=== PATIENT | female | born 1985 ===

== ENCOUNTER → 2021-06-03 08:51 | Outpatient (BNVA) | payer OTHER, SELFPAY | PROVIDERS: PCP Internal Medicine; Visit Provider Advanced Practice Midwife | DX: Z30.09 Encounter for other general counseling and advice on contraception (principal); E28.2 Polycystic ovarian syndrome; G43.909 Migraine, unspecified, not intractable, without status migrainosus | CPT/HCPCS: 99212 ==

== ENCOUNTER → 2021-08-03 11:56 | Outpatient (BNVA) | payer OTHER, SELFPAY | PROVIDERS: PCP Internal Medicine; Visit Provider Obstetrics & Gynecology ==

== ENCOUNTER 2021-08-30 09:03 | Outpatient (REF) | payer OTHER, SELFPAY ==
--- NOTE | 2021-08-30 09:13 | ECG_ITS ---
Test Reason : dizziness giddiness Blood Pressure : / mmHG Vent. Rate : 073 BPM Atrial Rate : 073 BPM P-R Int : 144 ms QRS Dur : 086 ms QT Int : 388 ms P-R-T Axes : 011 001 014 degrees QTc Int : 427 ms Normal sinus rhythm Minimal voltage criteria for LVH, may be normal variant ( R in aVL ) Borderline ECG When compared with ECG of 16-AUG-2015 13:51, Vent. rate has decreased BY 36 BPM Nonspecific T wave abnormality no longer evident in Anterior leads Referred By: Darline Cotton Electronically Signed By:MAGI DOZIER MD
[2021-08-30 09:31] LABS: MANUAL DIFF FLAG NO
[2021-08-30 09:57] LABS: Basophils Percent Auto 0.7 % (0-2); Eosinophils Absolute Auto 0.2 X10*3/uL (0.0-0.4); Eosinophils Percent Auto 2.9 % (0-4); Hematocrit 45.8 % (37.0-47.0); Hemoglobin 14.5 g/dl (12.0-16.0); Imm Gran Abs Auto 0.02 X10*3/uL (0.00-0.03); Imm Gran Pct Auto 0.3 % (0.0-0.4); Lymphocytes Absolute Auto 1.8 X10*3/uL (1.2-4.9); Lymphocytes Percent Auto 30.9 % (20-40); Mean Corpuscular HGB Conc 31.7 g/dl (31.0-35.0); Mean Corpuscular Hemoglobin 26.1 pg (27.0-33.0); Mean Corpuscular Volume 82.5 fL (80.0-98.0); Mean Platelet Volume 10.9 fL (9.4-12.3); Monocytes Absolute Auto 0.4 X10*3/uL (0.1-1.2); Monocytes Percent Auto 6.9 % (2-11); Neutrophils Absolute Auto 3.5 x10*3/uL (2.0-8.3); Neutrophils Percent Auto 58.3 % (45-73); Platelet Count 311 X10*3/uL (160-400); Red Blood Count 5.55 X10*6/uL (4.20-5.50); Red Cell Distribution Width 13.7 % (11.0-16.0); White Blood Count 5.9 X10*3/uL (4.8-10.8)
[2021-08-30 10:02] LABS: Prothrombin Time 11.7 SEC (9.9-13.0)
[2021-08-30 10:27] LABS: Alanine Aminotransferase 14 U/L (0-31); Albumin Level 4.2 g/dL (3.5-5.0); Alkaline Phosphatase 73 U/L (39-117); Anion Gap 11 (12-20); Aspartate Amino Transferase 16 U/L (5-31); Bilirubin Total 0.6 mg/dL (0.0-1.0); Blood Urea Nitrogen 11 mg/dL (9-16); Calcium 9.3 mg/dL (8.4-10.2); Carbon Dioxide 27 mmol/L (22-29); Chloride 107 mmol/L (96-108); Estimated Glomerular Filt Rate > 60; Glucose Random 87 mg/dL (60-115); Sodium 141 mmol/L (135-145); Total Protein 7.6 g/dL (6.5-8.0)
[2021-08-30 10:50] LABS: TSH reflex Free T4 2.38 uIU/mL (0.32-4.0); Vitamin D 25-OH Total 13.4 ng/mL (>30)
[2021-08-30 11:17] LABS: Folate 7.2 ng/mL (> or = 4.0); Vitamin B12 471 pg/mL (200-900)
== END 2021-08-30 09:04 | disposition home or self-care (01) ==
LOC: HO.LAB 09:03
PROVIDERS: PCP Internal Medicine; Visit Provider Nurse Practitioner Family
DX: R04.0 Epistaxis (principal); R42 Dizziness and giddiness; R26.89 Other abnormalities of gait and mobility; E03.9 Hypothyroidism, unspecified
CPT/HCPCS: 36415; 80053; 82306; 82607; 82746; 84443; 85025; 85610; 93005

== ENCOUNTER 2021-09-23 09:30 | Outpatient (RCR) | payer OTHER, SELFPAY ==
[2021-09-16 13:04] VITALS: BP 129/86; PULSE 87
--- NOTE | 2021-09-16 13:58 | MHC.PT.EP ---
[facility] [place] [facility] [place] [facility] [place] [facility] [address] [phone] F: [phone] F: [phone] F: [phone] F: [phone] Physical Therapy Plan of Care Date of Evaluation: Date of Surgery: NA Diagnosis: Dizziness and giddiness Assessment: Prema is a 36 year old female who is referred to PT for dizziness and giddiness . Pt reports of having sudden onset of dizziness about a month. She describes her symptoms as room spinning and is present with rolling to the R, looking up and down and sudden head turns, and nausea. On PT examination she presented with intact smooth pursuit, visual tracking, saccades, DVA, negative head thrust and VBI. She demonstrated good static and dynamic balance. She was positive in [place]. Due to these impairments she has difficulty with ADLS like requiring her to bend down or make sudden turn. She would benefit from skilled PT to address the aforementioned impairments and improve tolerance to functional activities. Frequency and Duration: The patient will be seen 2/week for 4 weeks Short Term Goals: Patient to be educated on symptoms and indications to return to therapy when needed min 4 weeks. Pt will be negative for nystagmus or reports of vertigo in all diagnostic positions bilaterally to resolution of BPPV in 4 weeks. Correction Goals: Patient to be able to functionally move in all planes and directions without provocation of dizziness to show return to PLOF in 6 weeks. Treatment Plan: Modalities to reduce pain, spasms and effusion. Manual therapy to restore motion and function. Therapeutic exercise to improve strength and flexibility. Neuromuscular re-education for posture and balance. Therapeutic activities to return to functional activities of daily living. Electronically signed by: Jesusita Dutton PT DPT Please sign and return to therapist. Thank you for your referral.
--- NOTE | 2021-10-21 08:32 | MHC.PT.DC ---
[facility] [place] [facility] [place] [facility] [place] [facility] [address] [place] [address] [facility] [phone] F: [phone] F: [phone] F: [phone] F: [phone] Physical Therapy Discharge Report Diagnosis: Dizziness and giddiness Date of Surgery: NA Date of Evaluation: 09/16/21 Date of Discharge: 10/21/21 Treatments to Date: 2 Cancellations to Date: 0 No Shows to Date: 0 Discharge Status: Achieved Goals Discharge Summary: Prema has had no symptoms of vestibular hypofunction in a month. She has therefore been d/c from therapy. Electronically signed by: Jesusita Dutotn PT DPT Please sign and return to therapist. Thank you for your referral.
== END 2021-10-21 08:32 | disposition home or self-care (01) ==
LOC: HO.PT 09:30
PROVIDERS: Visit Provider Nurse Practitioner Family
DX: R26.89 Other abnormalities of gait and mobility (principal); R42 Dizziness and giddiness
CPT/HCPCS: 95992; 97112; 97161

== ENCOUNTER 2021-12-07 14:39 | Emergency (ER) | payer OTHER, SELFPAY ==
[2021-12-07 15:02] VITALS: BP 154/93; PULSE 114; RESP 17; TEMP 36.3; O2SAT 100; BMI 41.9
--- NOTE | 2021-12-07 15:28 | ED_ITS ---
HPI - Female Genitourinary General Chief complaint: Urogenital-Female <Nava Blanco NP - Last Filed: 12/07/21 17:03> Stated complaint: low back pain <Nava Blanco NP - Last Filed: 12/07/21 17:03> Time Seen by Provider: 12/07/21 15:14 <Nava Blanco NP - Last Filed: 12/07/21 17:03> Source: patient <Nava Blanco NP - Last Filed: 12/07/21 17:03> Mode of arrival: ambulatory <Nava Blanco NP - Last Filed: 12/07/21 17:03> Limitations: no limitations <Nava Blanco NP - Last Filed: 12/07/21 17:03> History of Present Illness HPI Narrative: 36 yo female with history of hypothyroidism, vertigo, migraines, GERD here with complaints of back pain with radiation to the pelvis for the last 2 days. Pain is described as cramping. Patient denies any injury or trauma. No history of chronic back pain. Patient also reports she noticed some clear vaginal discharge yesterday. She has had some urinary frequency and urgency. She denies any diarrhea, constipation, nausea, vomiting, fevers, chills. Patient tells me she is sexually active with 1 male partner. She does use condoms normally however this past weekend while having sexual intercourse the condom broke. Patient tells me she does have a history of general herpes but denies any g enital lesions. She does have some discomfort in her external genital area. <Nava Blanco NP - Last Filed: 12/07/21 17:03> Related Data Home medications: Previous Rx's Medication Instructions Recorded albuterol sulfate 90 mcg/actuation 1 inh INHALATION Q4-6H PRN 30 Days 02/19/21 breath activated powder inhaler #1 ea (ProAir RespiClick) pantoprazole 40 mg tablet,delayed 40 mg PO DAILY 90 Days #90 tab 02/19/21 release cholecalciferol (vitamin D3) 50 50 mcg PO DAILY #90 tab 08/30/21 mcg (2,000 unit) tablet levothyroxine 112 mcg tablet 112 mcg PO DAILY 90 Days #90 tab 11/25/21 loratadine 10 mg tablet (Allergy 10 mg PO DAILY 90 Days #90 tab 11/26/21 Relief (loratadine)) benzonatate 100 mg capsule 100 mg PO BID PRN 5 Days #10 cap 12/06/21 cyclobenzaprine 10 mg tablet 10 mg PO TID PRN #14 tab 12/07/21 naproxen 500 mg tablet 500 mg PO BID PRN #30 tab 12/07/21 metronidazole 500 mg tablet 500 mg PO BID 7 Days #14 tab 12/09/21 <Nava Blanco NP - Last Filed: 12/07/21 17:03> Allergies/Adverse reactions: Allergies Allergy/AdvReac Type Severity Reaction Status Date / Time No Known Allergies Allergy Verified 12/06/21 13:56 <Nava Blanco NP - Last Filed: 12/07/21 17:03> Review of Systems Review of Systems: Yes all other systems are reviewed and are negative <Nava Blanco NP - Last Filed: 12/07/21 17:03> Constitutional: Constitutional: Reports no additional constitutional complaints, Denies body ache(s), Denies chills, Denies fever(s), Denies headache(s) and Denies weakness <ROBERTA Mcconnell Last Filed: 12/07/21 17:03> Eyes: Eyes: Reports no additional eye complaints and Denies change in vision <Nava Blanco NP - Last Filed: 12/07/21 17:03> ENT: Reports system reviewed and no additional complaints, except as documented, Denies dizziness, Denies headache(s), Denies nasal congestion, Denies nasal discharge and Denies neck pain <Nava Blanco NP - Last Filed: 12/07/21 17:03> Cardiovascular: Cardiovascular: Reports no additional cardiovascular complaints, Denies chest pain, Denies leg edema and Denies dyspnea <Nava Blanco NP - Last Filed: 12/07/21 17:03> Respiratory: Respiratory: Reports no additional respiratory complaints, Denies cough and Denies dyspnea <Nava Blanco NP - Last Filed: 12/07/21 17:03> Gastrointestinal: Gastrointestinal: Reports no additional gastrointestinal complaints, Denies abdominal pain, Denies diarrhea, Denies nausea and Denies vomiting <Nava Blanco NP - Last Filed: 12/07/21 17:03> Genitourinary: Genitourinary: Reports no additional female genitourinary complaints, Denies difficulty voiding, Denies genital pruritis, Denies genital lesions, Denies dysuria, Reports pelvic pain, Denies flank pain, Denies urinary incontinence, Denies urinary hesitancy, Reports urinary urgency and Reports vaginal discharge <Nava Blanco NP - Last Filed: 12/07/21 17:03> Comments: +urinary frequency <Nava Blanco NP - Last Filed: 12/07/21 17:03> Musculoskeletal: Musculoskeletal: Reports no additional musculoskeletal complaints, Reports back pain, Denies arthralgias, Denies joint swelling, Denies neck pain, Denies numbness and Denies tingling <Nava Blanco NP - Last Filed: 12/07/21 17:03> Integumentary/Breasts: Skin/Breast: Reports system reviewed and no additional complaints, except as docu and Denies rash <Nava Blanco NP - Last Filed: 12/07/21 17:03> Neurologic: Reports system reviewed and no additional complaints, except as documented, Denies Abnormal speech present, Denies dizziness, Denies headache(s), Denies numbness, Denies tingling and Denies weakness <Nava Blanco NP - Last Filed: 12/07/21 17:03> PMF Past Medical History Attestation statement: The following information was validated with the patient. <Nava Blanco NP - Last Filed: 12/07/21 17:03> Source: old records reviewed and nursing notes reviewed <Nava Blanco NP - Last Filed: 12/07/21 17:03> Medical History: Medical History Chronic GERD Hypothyroid Morbid obesity Viral infection <Nava Blanco NP - Last Filed: 12/07/21 17:03> Surgical History: Surgical History No pertinent past surgical history <Nava Blanco NP - Last Filed: 12/07/21 17:03> Family History Family History: Family History Father Medical history unknown Mother Asthma Hypertension Maternal Grandfather Stroke Paternal Grandfather Diabetes <Nava Blanco NP - Last Filed: 12/07/21 17:03> Social History Social History: Social History Housing: House Alcohol intake: former Patient Tobacco Use Status: Never used Tobacco e-Cigarette/Vaping Use: Never Used Second Hand Smoke Exposure: Yes service: No Current occupational status: employed Current occupational exposures/hazards: No Cognitive needs: No Hearing needs: No Vision needs: No <Nava Blanco NP - Last Filed: 12/07/21 17:03> Physical Exam Vital Signs: Vital Signs: Last Vital Signs Temp 97.3 F 12/07/21 15:02 Pulse 114 H 12/07/21 15:02 Resp 17 12/07/21 15:02 BP 154/93 H 12/07/21 15:02 Pulse Ox 100 12/07/21 15:02 BMI result Body Mass Index 41.9 <Nava Blanco NP - Last Filed: 12/07/21 17:03> Const: General: cooperative, healthy appearing, comfortable and no acute distress <Nava Blanco NP - Last Filed: 12/07/21 17:03> Orientation/consciousness: patient oriented x3 <Nava Blanco NP - Last Filed: 12/07/21 17:03> Limitations: no limitations <Nava Blanco NP - Last Filed: 12/07/21 17:03> HEENT: Head: Yes normal to inspection <Nava Blanco NP - Last Filed: 12/07/21 17:03> Ears: hearing grossly normal bilaterally <Nava Blanco NP - Last Filed: 12/07/21 17:03> General nose exam: Normal external nose present <Nava Blanco NP - Last Filed: 12/07/21 17:03> Face and sinus: Yes normal facial exam <Nava Blanco NP - Last Filed: 12/07/21 17:03> Mouth: Normal oral and palatal mucosa present <Nava Blanco NP - Last Filed: 12/07/21 17:03> Throat: Yes posterior oropharynx normal <Nava Blanco NP - Last Filed: 12/07/21 17:03> Eyes: General: appearance normal, both eyes and all related structures <Nava Blanco NP - Last Filed: 12/07/21 17:03> Pupils: Equal, round and reactive pupils present <Nava Blanco NP - Last Filed: 12/07/21 17:03> Neck: Neck: Yes normal visual inspection <Nava Blanco NP - Last Filed: 12/07/21 17:03> Chest: Chest palpation & inspection: normal inspection of the chest <Nava Blanco NP - Last Filed: 12/07/21 17:03> Resp: Effort & Inspection: normal respiratory effort <Nava Blanco NP - Last Filed: 12/07/21 17:03> Auscultation: clear to auscultation bilaterally <Nava Blanco NP - Last Filed: 12/07/21 17:03> Cardio: Rate: tachycardic <Nava Blanco NP - Last Filed: 12/07/21 17:03> Rhythm: regular rhythm <Nava Blanco NP - Last Filed: 12/07/21 17:03> Peripheral pulses: Peripheral pulses 2+ throughout <Nava Blanco NP - Last Filed: 12/07/21 17:03> GI: Inspection: Yes normal to inspection <Nava Blanco NP - Last Filed: 12/07/21 17:03> Palpation (GI): Soft to palpation, Tenderness to palpation present (GI) suprapubicly; Negative for obturator sign negative, psoas sign negative and with no rebound tenderness and no guarding <Nava Blanco NP - Last Filed: 12/07/21 17:03> Auscultation: normal bowel sounds <Nava Blanco NP - Last Filed: 12/07/21 17:03> : Other: leilanie auditing specialist present <Nava Blanco NP - Last Filed: 12/07/21 17:03> General: Yes no CVA tenderness <Nava Blanco NP - Last Filed: 12/07/21 17:03> Speculum Exam - Vagina: normal appearance of the vagina <Nava Blanco NP - Last Filed: 12/07/21 17:03> Speculum Exam - Cervix: normal appearance of the cervix <Nava Blanco NP - Last Filed: 12/07/21 17:03> Bimanual exam- vagina & uterus: normal bimanual exam <Nava Blanco NP - Last Filed: 12/07/21 17:03> Bimanual Exam- Adnexa, other: normal adnexae <Nava Blanco NP - Last Filed: 12/07/21 17:03> Back/Spine/Pelvis: Other: Negative straight leg exam <Nava Blanco NP - Last Filed: 12/07/21 17:03> Back: no CVA tenderness <Nava Blanco NP - Last Filed: 12/07/21 17:03> Thoracic/Lumbar Spine: thoracic and lumbar spine normal to inspection <Nava Blanco NP - Last Filed: 12/07/21 17:03> Skin: General skin exam: no rashes or lesions noted <Nava Blanco NP - Last Filed: 12/07/21 17:03> Neuro: General: patient oriented x3, moves all extremities, no focal motor deficits and normal sensation to monofilament <Nava Blanco NP - Last Filed: 12/07/21 17:03> Cranial nerves: Yes Equal, round and reactive pupils present <Nava Blanco NP - Last Filed: 12/07/21 17:03> Cognition (Neuro): normal cognition <Nava Blanco NP - Last Filed: 12/07/21 17:03> Speech: No Abnormal speech present <Nava Blanco NP - Last Filed: 12/07/21 17:03> Gait exam (Neuro): Normal gait present <Nava Blanco NP - Last Filed: 12/07/21 17:03> Motor exam (neuro): 5/5 motor strength present throughout <Nava Blanco NP - Last Filed: 12/07/21 17:03> Sensory Exam: Normal double simultaneous stimulation for sensation <Nava Blanco NP - Last Filed: 12/07/21 17:03> Extrem: General: Yes normal to inspection, Yes no pedal edema and Yes no calf tenderness <ROBERTA Mcconnell Last Filed: 12/07/21 17:03> Course Course Course Narrative: 36 yo female here with low back pain with radiation to the pelvis x 48 hrs with vag discharge, ?urinary symptoms. On exam no focal back pain, no CVAT, normal neuro exam. Abd soft, mild suprapubic tenderness with no rebound or guarding. to check UA, ur preg, CT NG, BV panel. Perform pelvic exam. 1550-pelvic exam shows scant clear vaginal discharge. No cervical motion tenderness or adnexal tenderness. Pending swab <ROBERTA Mcconnell Last Filed: 12/07/21 17:03> Reevaluation(s) Reevaluation #1: UA shows no signs of infection. Urine negative. STI testing sent. Patient has low concern of STI exposure. She deferred treatment today. She is aware she may need to return for treatment. Reviewed worrisome signs/symptoms with patient and when to return to the emergency department ( fever greater than 100.4, severe abdominal or back pain, intractable vomiting). Comfortable plan for discharge home. <Nava Blanco NP - Last Filed: 12/07/21 17:03> Time: 16:30 <Nava Blanco NP - Last Filed: 12/07/21 17:03> MDM - Female Genitourinary MDM Narrative Medical decision making narrative: BP/herniated disc -low concern for ovarian cyst with no focal pain on exam with a negative pelvic. Low concern for ovarian torsion with gradual onset of pain with no focal pain on her pelvic exam. Low concern for acute appendicitis with no focal abdominal pain. Abdomen soft, nontender. Negative obturator, psoas sign. <Nava Blanco NP - Last Filed: 12/07/21 17:03> Differential Diagnosis Differential diagnosis: Likely urinary tract infection, bacterial vaginosis, trichomoniasis, cervicitis, ovarian cyst, vaginitis and cystitis <Nava Blanco NP - Last Filed: 12/07/21 17:03> Medical Records Attestation: I reviewed the patient's medical records. <Nava Blanco NP - Last Filed: 12/07/21 17:03> Lab Data Attestation: I reviewed the patient's lab results. <Nava Blanco NP - Last Filed: 12/07/21 17:03> Labs: Lab Results 12/07/21 12/07/21 12/07/21 Range/Units 15:39 15:39 15:52 Urine Color YELLOW Urine Appearance CLEAR Urine pH 6.5 (5.0-8.0) Ur Specific [place] 1.020 (1.005-1.025) Urine Protein NEG (NEG-TRACE) MG/DL Urine Glucose (UA) NEG (NEG) MG/DL Urine Ketones NEG (NEG) MG/DL Urine Blood 1+ H (NEG) Urine Nitrite NEG (NEG) Ur Leukocyte Esterase TRACE H (NEG) Urine RBC 1-4 (0) /HPF Urine WBC 0-2 (0-4) /HPF Ur Squamous Epith Cells 1+ /LPF Urine Bacteria 1+ /LPF Urine Test NEGATIVE (NEGATIVE) Yin species DNA (Negative) Chlam trachomat DNA PCR NOT DETECTED (Not Detect.) Gardnerella DNA Probe (Negative) N.gonorrhoeae DNA (PCR) NOT DETECTED (Not Detect.) Trichomonas DNA Probe (Negative) 12/07/21 Range/Units 15:52 Urine Color Urine Appearance Urine pH (5.0-8.0) Ur Specific [place] (1.005-1.025) Urine Protein (NEG-TRACE) MG/DL Urine Glucose (UA) (NEG) MG/DL Urine Ketones (NEG) MG/DL Urine Blood (NEG) Urine Nitrite (NEG) Ur Leukocyte Esterase (NEG) Urine RBC (0) /HPF Urine WBC (0-4) /HPF Ur Squamous Epith Cells /LPF Urine Bacteria /LPF Urine Test (NEGATIVE) Yin species DNA Negative (Negative) Chlam trachomat DNA PCR (Not Detect.) Gardnerella DNA Probe Positive A (Negative) N.gonorrhoeae DNA (PCR) (Not Detect.) Trichomonas DNA Probe Negative (Negative) <Nava Blanco NP - Last Filed: 12/07/21 17:03> Discharge Plan Discharge Clinical Impression: Back pain, Pelvic pain <Nava Blanco NP - Last Filed: 12/07/21 17:03> Patient Disposition: Home, Self-Care <Nava Blanco NP - Last Filed: 12/07/21 17:03> Instructions: Acute Low Back Pain (ED), Pelvic Pain (ED) <Nava Blanco NP - Last Filed: 12/07/21 17:03> Additional Instructions: Your urine shows no signs of infection and your test was negative. We sent testing for sexually transmitted diseases and vaginal infections common in women. These results will not be available for the next 1- 2 days. We will call you if they are positive. In the meantime we recommend heat or ice to your back and or abdomen. Gentle stretching. No heavy lifting or bending. Seek care in the emergency department for severe pain, high fever, vomiting that is intractable. For persistent pain greater than 5 days please follow-up with your primary care doctor. <Nava Blanco NP - Last Filed: 12/07/21 17:03> Prescriptions: New naproxen 500 mg tablet 500 mg PO BID PRN (Reason: pain) Qty: 30 0RF cyclobenzaprine 10 mg tablet 10 mg PO TID PRN (Reason: muscle spasm) Qty: 14 0RF No Action ProAir RespiClick 90 mcg/actuation aerosol powdr breath activated 1 inh inhalation Q4-6H PRN (Reason: shortness of breath or wheezing) 30 Days Qty: 1 2RF pantoprazole 40 mg tablet,delayed release (DR/EC) 40 mg PO DAILY 90 Days Qty: 90 2RF cholecalciferol (vitamin D3) 50 mcg (2,000 unit) tablet 50 mcg PO DAILY Qty: 90 1RF levothyroxine 112 mcg tablet 112 mcg PO DAILY 90 Days Qty: 90 0RF loratadine [Allergy Relief (loratadine)] 10 mg tablet 10 mg PO DAILY 90 Days Qty: 90 3RF metronidazole 500 mg tablet 500 mg PO BID 7 Days Qty: 14 0RF benzonatate 100 mg capsule 100 mg PO BID PRN (Reason: cough) 5 Days Qty: 10 0RF <Nava Blanco NP - Last Filed: 12/07/21 17:03> Referrals: Herlinda Keller MD [Primary Care Provider] - 5 days (For persistent pain) <Nava Blanco NP - Last Filed: 12/07/21 17:03> Stand Alone Forms: Work/School Release <Nava Blanco NP - Last Filed: 12/07/21 17:03> Interventions: ED Discharge Assessment Last Done: 12/07/21 16:20 <Nava Blanco NP - Last Filed: 12/07/21 17:03> Discharge Date/Time: 12/07/21 16:23 <Nava Blanco NP - Last Filed: 12/07/21 17:03>
[2021-12-07 15:46] LABS: Appearance Urine CLEAR; Color Urine YELLOW; Glucose Urine UA NEG (NEG); Leukocyte Esterase Urine TRACE (NEG); Nitrite Urine NEG (NEG); PH 6.5 (5.0-8.0); UACC Culture Trigger NO; Urine Blood 1+ (NEG); Urine Ketones NEG (NEG); Urine Protein NEG (NEG-TRACE)
[2021-12-07 15:48] LABS: UPreg QC Valid YES; Urine Pregnancy NEGATIVE (NEGATIVE)
[2021-12-07 15:54] LABS: Bacteria Urine 1+ /LPF; Squamous Epithelial Cell Urine 1+ /LPF; WBC Urine 0-2 /HPF (0-4)
[2021-12-07 18:21] LABS: CT PCR NOT DETECTED (Not Detect.); NG PCR NOT DETECTED (Not Detect.)
[2021-12-08 11:12] LABS: BV Int Neg Control Negative (Negative); BV Int Pos Control Positive (Positive)
== END 2021-12-07 16:23 | disposition home or self-care (01) ==
PROVIDERS: Nurse Practitioner Family; Emergency Provider Emergency Medicine; PCP Internal Medicine
DX: R10.2 Pelvic and perineal pain (principal); M54.50 Low back pain, unspecified; B96.89 Other specified bacterial agents as the cause of diseases classified elsewhere
CPT/HCPCS: 81001; 81025; 87480; 87491; 87510; 87591; 87660; 99282; 99283

== ENCOUNTER 2021-12-12 08:43 | Outpatient (REF) | payer OTHER, SELFPAY ==
[2021-12-12 13:54] LABS: CT PCR NOT DETECTED (Not Detect.); NG PCR NOT DETECTED (Not Detect.)
[2021-12-13 11:13] LABS: BV Int Neg Control Negative (Negative); BV Int Pos Control Positive (Positive)
== END 2021-12-12 08:44 | disposition home or self-care (01) ==
LOC: HO.LAB 08:43
PROVIDERS: PCP Internal Medicine; Visit Provider Obstetrics & Gynecology
DX: R10.2 Pelvic and perineal pain (principal); R31.29 Other microscopic hematuria
CPT/HCPCS: 81025; 87086; 87480; 87491; 87510; 87591; 87660; 99212

== ENCOUNTER → 2021-12-26 09:59 | Outpatient (BNVA) | payer OTHER, SELFPAY | PROVIDERS: PCP Internal Medicine; Visit Provider Obstetrics & Gynecology | DX: R31.29 Other microscopic hematuria (principal) | CPT/HCPCS: 99212 ==

== ENCOUNTER 2022-01-10 11:05 | Outpatient (REF) | payer OTHER, SELFPAY ==
--- NOTE | ~2022-01-10 | US_ITS ---
EXAMINATION: US PELVIS CLINICAL INFORMATION: Pelvic and perineal pain. COMPARISON: None TECHNIQUE: Ultrasound of the pelvis is performed using both transabdominal and transvaginal transducers along with Doppler. Transvaginal imaging is performed due to inadequate visualization transabdominally. FINDINGS: Uterus: The uterus is anteverted, retroflexed and measures 10.9 cm in length, 4.5 cm in AP and 5.6 cm in transverse dimension. The double wall endometrial thickness is 1.6 cm. The uterus is smooth in contour and has normal myometrial echogenicity. No visible fibroid. There are small nabothian cysts in the cervix. Adnexa: Both ovaries are visualized. There is normal color flow to the adnexa. There is no ovarian torsion. There is no pelvic ascites or fluid collection. Right ovary measures 3.0 x 2.6 x 4.4 cm and volume 17.9 mL.. There is a small dominant follicle. Previously right ovary measured 3.3 x 2.4 x 3.0 cm. Left ovary measures 3.9 x 2.3 x 2.8 cm and volume 13.0 mL. It appears unremarkable. Previously left ovary measured 2.7 x 2.1 x 2.2 cm. US/US pelvic and transvaginal IMPRESSION: Small nabothian cysts in the cervix. Uterus unremarkable. Ovaries unremarkable except for a small dominant follicle in the right ovary.
== END 2022-01-10 11:06 | disposition home or self-care (01) ==
LOC: HO.US 11:05
PROVIDERS: Visit Provider Obstetrics & Gynecology
DX: R10.2 Pelvic and perineal pain (principal)
CPT/HCPCS: 76830; 76856

== ENCOUNTER → 2022-01-30 09:32 | Outpatient (BNVA) | payer OTHER, SELFPAY | PROVIDERS: PCP Internal Medicine; Visit Provider Obstetrics & Gynecology | DX: R10.2 Pelvic and perineal pain (principal) | CPT/HCPCS: 99212 ==

== ENCOUNTER 2022-04-05 10:40 | Outpatient (REF) | payer OTHER, SELFPAY ==
[2022-04-06 06:34] LABS: CT PCR NOT DETECTED (Not Detect.); NG PCR NOT DETECTED (Not Detect.)
[2022-04-06 09:20] LABS: BV Int Neg Control Negative (Negative); BV Int Pos Control Positive (Positive)
== END 2022-04-05 10:41 | disposition home or self-care (01) ==
LOC: HO.LAB 10:40
PROVIDERS: Visit Provider Obstetrics & Gynecology
DX: Z11.3 Encounter for screening for infections with a predominantly sexual mode of transmission (principal); B37.3 Candidiasis of vulva and vagina
CPT/HCPCS: 87480; 87491; 87510; 87591; 87660; 99212

== ENCOUNTER 2022-07-21 07:45 | Outpatient (REF) | payer OTHER, SELFPAY ==
[2022-07-21 09:18] LABS: Alanine Aminotransferase 16 U/L (0-31); Alkaline Phosphatase 68 U/L (39-117); Anion Gap 11 (12-20); Aspartate Amino Transferase 18 U/L (5-31); Bilirubin Total 0.7 mg/dL (0.0-1.0); Blood Urea Nitrogen 8 mg/dL (9-16); Carbon Dioxide 27 mmol/L (22-29); Chloride 107 mmol/L (96-108); Cholesterol 158 mg/dL; Estimated Glomerular Filt Rate > 60; Glucose Fasting 86 mg/dL (60-99); HDL Cholesterol 37 mg/dL; LDL Cholesterol Calculated 109 mg/dl; Potassium 4.1 mmol/L (3.3-5.1); Sodium 141 mmol/L (135-145); Thyroid Stimulating Hormone 3.18 uIU/mL (0.32-4.0); Total Protein 6.6 g/dL (6.5-8.0); Triglycerides 63 mg/dL; Vitamin D 25-OH Total 14.2 ng/mL (>30)
== END 2022-07-21 07:46 | disposition home or self-care (01) ==
LOC: HO.LAB 07:45
PROVIDERS: PCP Internal Medicine; Visit Provider Internal Medicine
DX: Z00.00 Encounter for general adult medical examination without abnormal findings (principal); E03.9 Hypothyroidism, unspecified; E55.9 Vitamin D deficiency, unspecified; I10 Essential (primary) hypertension
CPT/HCPCS: 36415; 80053; 80061; 82306; 84443

== ENCOUNTER 2022-08-30 08:01 | Outpatient (REF) | payer OTHER, SELFPAY ==
[2022-08-30 08:52] LABS: Influenza A PCR NEGATIVE (Negative); Influenza B PCR NEGATIVE (Negative); Resp Syncy Virus RNA Qual PCR NEGATIVE (Negative); SARS COV2 PCR INHOUSE NEGATIVE (Negative)
[2022-08-30 09:29] LABS: Thyroid Stimulating Hormone 2.32 uIU/mL (0.32-4.0); Vitamin D 25-OH Total 12.4 ng/mL (>30)
== END 2022-08-30 08:02 | disposition home or self-care (01) ==
LOC: HO.LAB 08:01
PROVIDERS: PCP Internal Medicine; Visit Provider Internal Medicine
DX: Z20.822 Contact with and (suspected) exposure to COVID-19 (principal); E55.9 Vitamin D deficiency, unspecified; E03.9 Hypothyroidism, unspecified; R09.89 Other specified symptoms and signs involving the circulatory and respiratory systems
CPT/HCPCS: 0241U; 82306; 84443

== ENCOUNTER 2022-09-27 11:10 | Outpatient (REF) | payer OTHER, SELFPAY ==
[2022-09-27 13:11] LABS: Syphilis Screen Nonreactive (Nonreactive)
[2022-09-28 10:03] LABS: CT PCR NOT DETECTED (Not Detect.); NG PCR NOT DETECTED (Not Detect.)
[2022-09-28 13:30] LABS: BV Int Neg Control Negative (Negative); BV Int Pos Control Positive (Positive)
[2022-09-29 06:41] LABS: HBsAGNum1 0.25 S/CO (0.00-0.99); HIV AB/AG Nonreactive (Nonreactive); HIV Num 1 0.07 S/CO (0.00-0.99); Hepatitis B Surface Antigen Negative (Negative); ~HepC Num1 0.25 S/CO (0.00-0.79); ~Hepatitis C Antibody Nonreactive (Nonreactive)
== END 2022-09-27 11:11 | disposition home or self-care (01) ==
LOC: HO.LAB 11:10
PROVIDERS: PCP Internal Medicine; Visit Provider Obstetrics & Gynecology
DX: Z01.419 Encounter for gynecological examination (general) (routine) without abnormal findings (principal); Z11.4 Encounter for screening for human immunodeficiency virus [HIV]; B37.31 Acute candidiasis of vulva and vagina
CPT/HCPCS: 0353U; 36415; 86780; 86803; 87340; 87389; 87480; 87510; 87660

== ENCOUNTER 2022-09-27 11:46 | Outpatient (REF) | payer OTHER, SELFPAY ==
[2022-09-30 06:43] LABS: HPV mRNA E6/E7 rflx Not Detected (Not Detected)
== END 2022-09-27 11:47 | disposition home or self-care (01) ==
LOC: HO.LNP 11:46
PROVIDERS: Visit Provider Obstetrics & Gynecology
DX: Z01.419 Encounter for gynecological examination (general) (routine) without abnormal findings (principal); Z11.51 Encounter for screening for human papillomavirus (HPV)
CPT/HCPCS: 87624; 88142

== ENCOUNTER 2022-12-19 14:50 | Outpatient (REF) | payer OTHER, SELFPAY ==
[2022-12-20 09:03] LABS: CT PCR NOT DETECTED (Not Detect.); NG PCR NOT DETECTED (Not Detect.)
[2022-12-20 10:13] LABS: BV Int Neg Control Negative (Negative); BV Int Pos Control Positive (Positive)
== END 2022-12-19 14:51 | disposition home or self-care (01) ==
LOC: HO.LNP 14:50
PROVIDERS: PCP Internal Medicine; Visit Provider Obstetrics & Gynecology
DX: Z11.3 Encounter for screening for infections with a predominantly sexual mode of transmission (principal); N76.0 Acute vaginitis
CPT/HCPCS: 0353U; 87480; 87510; 87660; 99212

== ENCOUNTER 2022-12-22 12:00 | Outpatient (REF) | payer OTHER, SELFPAY ==
[2022-12-22 13:53] LABS: HBsAGNum1 0.31 S/CO (0.00-0.99); HIV AB/AG Nonreactive (Nonreactive); HIV Num 1 0.06 S/CO (0.00-0.99); Hepatitis B Surface Antigen Negative (Negative); Syphilis Screen Nonreactive (Nonreactive); ~HepC Num1 0.38 S/CO (0.00-0.79); ~Hepatitis C Antibody Nonreactive (Nonreactive)
== END 2022-12-22 12:01 | disposition home or self-care (01) ==
LOC: HO.LAB 12:00
PROVIDERS: PCP Internal Medicine; Visit Provider Obstetrics & Gynecology
DX: Z11.3 Encounter for screening for infections with a predominantly sexual mode of transmission (principal); Z11.4 Encounter for screening for human immunodeficiency virus [HIV]
CPT/HCPCS: 36415; 86780; 86803; 87340; 87389

== ENCOUNTER 2023-01-23 07:53 | Outpatient (REF) | payer OTHER, SELFPAY | END 2023-01-23 07:54 | disposition home or self-care (01) | LOC: HO.LNP 07:53 | PROVIDERS: PCP Internal Medicine; Visit Provider Obstetrics & Gynecology | DX: N93.9 Abnormal uterine and vaginal bleeding, unspecified (principal); N76.0 Acute vaginitis; B96.89 Other specified bacterial agents as the cause of diseases classified elsewhere | CPT/HCPCS: 99212 ==

== ENCOUNTER 2023-01-23 08:26 | Outpatient (REF) | payer OTHER, SELFPAY ==
[2023-01-23 09:04] LABS: Hematocrit 43.5 % (37.0-47.0); Mean Corpuscular HGB Conc 32.2 g/dl (31.0-35.0); Mean Corpuscular Hemoglobin 26.1 pg (27.0-33.0); Mean Corpuscular Volume 81.2 fL (80.0-98.0); Mean Platelet Volume 10.2 fL (9.4-12.3); Platelet Count 277 X10*3/uL (160-400); Red Blood Count 5.36 X10*6/uL (4.20-5.50); Red Cell Distribution Width 13.8 % (11.0-16.0); White Blood Count 6.8 X10*3/uL (4.8-10.8)
[2023-01-23 09:39] LABS: HCG Quantitative < 2 mIU/mL
[2023-01-23 09:52] LABS: TSH reflex Free T4 3.31 uIU/mL (0.32-4.0)
== END 2023-01-23 08:27 | disposition home or self-care (01) ==
LOC: HO.LAB 08:26
PROVIDERS: PCP Internal Medicine; Visit Provider Obstetrics & Gynecology
DX: N93.9 Abnormal uterine and vaginal bleeding, unspecified (principal)
CPT/HCPCS: 84146; 84443; 84702; 85027

== ENCOUNTER 2023-01-23 13:46 | Outpatient (REF) | payer OTHER, SELFPAY ==
[2023-01-24 13:05] LABS: BV Int Neg Control Negative (Negative); BV Int Pos Control Positive (Positive)
== END 2023-01-23 13:47 | disposition home or self-care (01) ==
LOC: HO.LNP 13:46
PROVIDERS: Visit Provider Obstetrics & Gynecology
DX: Z11.3 Encounter for screening for infections with a predominantly sexual mode of transmission (principal)
CPT/HCPCS: 87480; 87510; 87660

== ENCOUNTER 2023-01-29 15:35 | Outpatient (REF) | payer OTHER, SELFPAY ==
--- NOTE | ~2023-01-29 | US_ITS ---
EXAMINATION: US PELVIS CLINICAL INFORMATION: Abnormal uterine and vaginal bleeding; the last menstrual period was on 01/07/2023. COMPARISON: Pelvic ultrasound dated 01/10/2022. TECHNIQUE: Ultrasound of the pelvis is performed using both transabdominal and transvaginal transducers along with Doppler. Transvaginal imaging is performed due to inadequate visualization transabdominally. FINDINGS: Uterus: The uterus is anteverted and anteflexed. The uterus measures 11.3 x 5.1 x 6.3 cm. The double wall endometrial thickness is 1.0 mm. The uterus is smooth in contour and has normal myometrial echogenicity. No visible fibroid. Adnexa: Both ovaries are visualized. There is normal color flow to the adnexa. There is no ovarian torsion. There is no pelvic ascites or fluid collection. Right ovary measures 3.3 x 2.5 x 4.3 cm, volume 18.8 mL. Left ovary measures 3.3 x 2.4 x 2.4 cm, volume 9.8 mL. US/US pelvic and transvaginal IMPRESSION: Unremarkable examination.
== END 2023-01-29 15:36 | disposition home or self-care (01) ==
LOC: HO.US 15:35
PROVIDERS: PCP Internal Medicine; Visit Provider Obstetrics & Gynecology
DX: N93.9 Abnormal uterine and vaginal bleeding, unspecified (principal)
CPT/HCPCS: 76830; 76856

== ENCOUNTER 2023-02-26 12:53 | Outpatient (AMB) | payer OTHER, SELFPAY ==
--- NOTE | 2023-02-26 13:13 | MHC.OFFVIS ---
Intake Vital Signs 02/26/23 13:16 Height 5 ft 4 in Weight 254 lb BMI 43.6 BP 110/80 Intake Visit Reasons: emb/ultra sound follow up Source Water Protection Specialist Required: No Information Interpreted: non-clinical & clinical Industrial Safety And Health Specialist: Industrial Safety And Health Specialist Present (Aidyn) Allergies No Known Allergies Allergy (Verified 02/26/23 13:18) Is last menstrual period known: Yes Last menstrual period: 02/11/23 Post menopausal: No Patient : No Do you need a note to return to daycare/school/sports/work: Yes (for surgery on sunday) HPI HPI Comments History of Present Illness Details Presenting for endometrial biopsy for abnormal uterine bleeding. Complaining of vaginal discharge with followed the [facility] Medical History Chronic GERD Hypothyroid Morbid obesity Viral infection Surgical History No pertinent past surgical history Family History Father Medical history unknown Mother Asthma Hypertension Maternal Grandfather Stroke Paternal Grandfather Diabetes Maternal Uncle Colon cancer Social History Household Members: Children Housing: House Alcohol intake: current Alcohol intake frequency: holidays/special occasions only Alcohol type: wine Patient Tobacco Use Status: Former Tobacco user e-Cigarette/Vaping Use: Never Used Second Hand Smoke Exposure: Yes service: No Current occupational status: employed Current occupation: customer services Current occupational exposures/hazards: No Sexual orientation: Straight/Heterosexual Gender identity: Female Cognitive needs: No Hearing needs: No Vision needs: No Female Reproductive History Menstrual Age of Menarche: 7 Date of last menstrual period: 02/11/23 control method: none Total pregnancies: 2 Full term: 2 Review of Systems Card Reports as per HPI and Reports no additional complaints Resp Reports as per HPI and Reports no additional complaints GI Reports as per HPI and Reports no additional complaints Reports as per HPI Physical Exam Const General: cooperative, healthy appearing and comfortable Chest Chest palpation & inspection: normal inspection of the chest and normal palpation of entire chest wall Breast/axilla inspection: normal inspection of the breasts and normal inspection of the axillae Breast/axilla palpation: normal palpation of the breasts, normal palpation of the axillae and no axillary lymphadenopathy Resp Effort & Inspection: normal respiratory effort Auscultation: clear to auscultation bilaterally Percussion: percussion normal Cardio Palpation: normal PMI Rate: regular rate Rhythm: regular rhythm Heart sounds: no murmurs and no rubs Peripheral pulses: Peripheral pulses 2+ throughout GI Inspection: Yes normal to inspection Palpation (GI): Soft to palpation, nontender, no guarding, not rigid and No hepatosplenomegaly present Percussion: Yes normal to percussion Auscultation: normal bowel sounds Rectal Exam - Female: deferred Assessment & Plan Assessment & Plan (1) Abnormal uterine bleeding: Code(s): N93.9 - Abnormal uterine and vaginal bleeding, unspecified Plan: EMB attempted but was not tolerated, the patient has to abort the procedure. Recommended hysteroscopy D&C possible polypectomy under anaesthesia. Discussed with the patient the procedure , all benefits and risks including but not limited to inability to complete the procedure , bleeding, infection, possible need for blood transfusion with all its risk ( HIV,syphilis, Hepatitis, anaphylaxis shock, others..), injury to bladder, rectum, possible need for laparoscopy/laparotomy or hysterectomy. The patient verbalized understanding and signed the consent. Instructions given the patient to schedule a 2 week postoperative appointment (2) Bacterial vaginosis: Code(s): N76.0 - Acute vaginitis; B96.89 - Other specified bacterial agents as the cause of diseases classified elsewhere Plan: Flagyl 500 mg p.o. b.i.d. x 7 days, Instructions given to the patient to refrain from sexual activity or to use condoms consistently and correctly during the BV treatment regimen, not to douch, it might increase the risk for relapse, and to call if symptoms persist or recur. Medications: New metronidazole 500 mg PO BID 14 tabs 0RF 7 days Coding Level of Care Code Est Pt Level 3 (77869) Diagnoses Abnormal uterine bleeding N93.9 Bacterial vaginosis N76.0; B96.89
[2023-02-26 13:16] VITALS: BP 110/80; BMI 43.6
== END 2023-02-26 13:35 | disposition home or self-care (01) ==
LOC: HO.HWS 12:53
PROVIDERS: PCP Internal Medicine; Visit Provider Obstetrics & Gynecology
DX: N93.9 Abnormal uterine and vaginal bleeding, unspecified (principal); N76.0 Acute vaginitis; B96.89 Other specified bacterial agents as the cause of diseases classified elsewhere
CPT/HCPCS: 99213

== ENCOUNTER → 2023-02-26 12:53 | Outpatient (BNVA) | payer OTHER, SELFPAY | PROVIDERS: PCP Internal Medicine; Visit Provider Obstetrics & Gynecology | DX: N93.9 Abnormal uterine and vaginal bleeding, unspecified (principal); N76.0 Acute vaginitis; B96.89 Other specified bacterial agents as the cause of diseases classified elsewhere | CPT/HCPCS: 99212 ==

== ENCOUNTER 2023-03-13 17:15 | Outpatient (AMB) | payer OTHER, SELFPAY ==
[2023-03-13 17:18] VITALS: BP 132/78; PULSE 82; O2SAT 98; BMI 42.9
--- NOTE | 2023-03-13 17:18 | A.OFFPC_ITS ---
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 Accompanied by: Self / Same As Patient Allergies No Known Allergies Allergy (Verified 03/13/23 17:27) Medication List - Last Reconciled 03/13/23 by Herlinda Mitchell MD cholecalciferol (vitamin D3) 50 mcg PO DAILY levothyroxine 112 mcg PO DAILY 90 days loratadine (Allergy Relief (loratadine)) 10 mg PO DAILY 90 days metronidazole 500 mg PO BID 7 days pantoprazole 40 mg PO DAILY 90 days Ventolin HFA 90 mcg/actuation (albuterol sulfate) 2 puffs PO Q6H PRN NS Tobacco use date assessed: 03/13/23 Dental Screening Dental Screen Date: 03/13/23 Did you have a dental visit in the last 12 months?: Yes Did you have a dental problem in the last 6 months where you did not have access to dental care?: No Was dental information given to patient?: Patient has dentist HPI HPI Comments History of Present Illness Details This is a 37 year old female with morbid obesity that comes today for her physical exam. She is morbidly obese with BMI of 42 and declines weight management referral for weight loss surgery. I advise to do diet and exercise to reach BMI goal less than 30. She did not seem interested in losing weight. Pap smear done this year. [facility] Medical History Asthma Chronic GERD Hypothyroid Morbid obesity PCOS (polycystic ovarian syndrome) Viral infection Surgical History No pertinent past surgical history Family History (Updated 03/13/23 @ 17:31 by Herlinda Mitchell MD) Father Hypertension Pure hypercholesterolemia Mother Asthma Hypertension Maternal Grandfather Stroke Paternal Grandfather Diabetes Maternal Uncle Colon cancer Social History Household Members: Children Housing: House Alcohol intake: current Alcohol intake frequency: holidays/special occasions only Alcohol type: wine Patient Tobacco Use Status: Never used Tobacco e-Cigarette/Vaping Use: Never Used Second Hand Smoke Exposure: Yes service: No Current occupational status: employed Current occupation: customer services Current occupational exposures/hazards: No Sexual orientation: Straight/Heterosexual Gender identity: Female Cognitive needs: No Hearing needs: No Vision needs: No Female Reproductive History Menstrual Age of Menarche: 7 Questionnaire PHQ-9 Over the last 2 weeks, how often have you been bothered by any of the following problems? 1. Little interest or pleasure in doing things: not at all 2. Feeling down, depressed, or hopeless: not at all 3. Trouble falling or staying asleep, or sleeping too much: not at all 4. Feeling tired or having little energy: not at all 5. Poor appetite or overeating: not at all 6. Feeling bad about yourself - or that you are a failure or have let yourself or your family down: not at all 7. Trouble concentrating on things, such as reading the newspaper or watching television: not at all 8. Moving or speaking so slowly that other people could have noticed. Or the opposite - being so fidgety or restless that you have been moving around a lot more than usual: not at all 9. Thoughts that you would be better off or of hurting yourself in some way: not at all Total score: 0 Depression Screening Interpretation: Negative 22128 - PHQ-9 Billing: Yes Source: Developed by Drs. Tutu Pratt, Deyanira Smith, Daryl Waller and colleagues, with an educational elizabeth from [email or web address]. Thrive Questionnaire Date Thrive assessed: 03/13/23 I am a: Patient What is your living situation today?: I have a steady place to live Within the past 12 months, did the food you bought not last and you didn't have the money to get more?: Never true Within the past 12 months, did you worry whether your food would run out before you got money to buy more?: Never true Do you have trouble paying for medicines?: No Do you have trouble getting transportation to medical appointments?: No Do you have trouble paying your heating and electricity bill?: No Do you have trouble taking care of your child, family member or friend?: No Do you have trouble with day-to-day activities such as bathing, preparing meals, shopping, managing finances, etc.?: No Are you currently unemployed and looking for a job?: No Are you interested in more education?: No Currently or been in a relationship where the following occur: no concerns reported AUDIT C Alcohol Use Questionnaire (AUDIT-C) 1. How often do you have a drink containing alcohol?: Never Total Score: 0 ALINE-7 AMB Questionnaire ALINE-7 Date ALINE - 7 assessed: 03/13/23 Feeling nervous, anxious, or on edge: 0 = Not at all Not being able to stop or control worryin = Not at all Worrying too much about different things: 0 = Not at all Trouble relaxin = Not at all Being so restless that it is hard to sit still: 0 = Not at all Becoming easily annoyed or irritable: 0 = Not at all Feeling afraid as if something awful might happen: 0 = Not at all Total ALINE-7 score (0-4 normal; 5-9 mild; 10-14 moderate; 15-21 severe): 0 Source: Developed by Drs. Tutu Pratt, Deyanira Smith, Daryl Waller and colleagues, with an educational elizabeth from [email or web address]. ALINE-7 Assessment Billing ALINE-7 Assessment Tool: ALINE-7 Assessment 51462 Review of Systems Const All systems reviewed & are unremarkable except as noted in HPI and below Eyes Reports no additional complaints, Denies change in vision and Denies other visual disturbances Card Denies chest pain at rest, Denies chest pain with activity, Denies edema, Denies irregular heart rhythm, Denies claudication, Denies dyspnea, Denies dyspnea on exertion, Denies orthopnea, Denies paroxysmal nocturnal dyspnea and Denies slow heart rate Resp Denies cough, Denies dyspnea and Denies dyspnea on exertion GI Denies abdominal pain, Denies change in bowel habits, Denies excessive flatus, Denies nausea and Denies vomiting Denies urinary incontinence, Denies urinary hesitancy and Denies urinary urgency Musc Denies abnormal gait, Denies atrophy, Denies deformity and Denies limited range of motion Skin/Breast Denies bleeding lesions, Denies changing lesions and Denies rash Neuro Denies abnormal gait and Denies lack of coordination Physical exam (Primary Care) Vital Signs: Last Vital Signs Pulse 82 03/13/23 17:18 BP 132/78 03/13/23 17:18 Pulse Ox 98 03/13/23 17:18 Oxygen Delivery Method Room Air 03/13/23 17:18 BMI result Body Mass Index 42.9 Tobacco/Smoking Status: Tobacco use Status Tobacco use date assessed 03/13/23 03/13/23 17:22 Patient Tobacco Use Status Never used Tobacco 03/13/23 17:22 e-Cigarette/Vaping Use Never Used 03/13/23 17:22 PHQ-9: PHQ-9 Score PHQ-9: Total score 0 03/13/23 17:33 Depression Screening Interpretation: Negative Thrive Assessment: Date of Thrive Assessment Date Thrive assessed 03/13/23 03/13/23 17:22 Currently or been in a relationship where the following occur: no concerns reported Const Orientation/consciousness: patient oriented x3 HENMT Head: Yes normal to inspection, Yes normocephalic and Yes atraumatic Ears: external ears normal Eyes General: appearance normal, both eyes and all related structures Eyelids: Yes eyelids normal Conjunctivae: conjunctivae normal Neck Neck: Yes normal visual inspection and Yes supple Resp Effort & Inspection: normal respiratory effort Auscultation: clear to auscultation bilaterally Cardio Jugular venous distension: no JVD Rate: regular rate Rhythm: regular rhythm Heart sounds: S1 normal heart sound present and S2 normal heart sound present GI Inspection: Yes normal to inspection Palpation (GI): Soft to palpation and nontender Auscultation: normal bowel sounds Skin General skin exam: no rashes or lesions noted Neuro General: patient oriented x3 and no focal motor deficits Extrem General: Yes full ROM Psych Appearance: grossly normal Assessment and Plan Assessment & Plan (1) Physical exam: Code(s): Z00.00 - Encounter for general adult medical examination without abnormal findings Plan: Repeat in a year. (2) Morbid obesity: Code(s): E66.01 - Morbid (severe) obesity due to excess calories Plan: Advise to start diet and exercise. BMI goal is less than 30. Orders: Orders Thyroid Stimulating Hormone 6 Months E03.9 - Hypothyroidism, unspecified Coding Level of Care Code Est Pt Prev Care 18-39y(68594) Diagnoses Physical exam Z00.00 Morbid obesity E66.01 Additional Codes ALINE-7 Assessment Billing - ALINE-7 Assessment Tool: ALINE-7 Assessment 90636 ([id number]) Time Spent (min) 31
== END 2023-03-13 17:38 | disposition home or self-care (01) ==
PROVIDERS: PCP Internal Medicine; Visit Provider Internal Medicine
DX: Z00.00 Encounter for general adult medical examination without abnormal findings (principal); E66.01 Morbid (severe) obesity due to excess calories; Z68.41 Body mass index [BMI] 40.0-44.9, adult
CPT/HCPCS: 99395

== ENCOUNTER 2023-03-16 09:42 | Day surgery (SDC) | payer OTHER, SELFPAY ==
[2023-03-13 14:48] VITALS: BMI 43.6
--- NOTE | 2023-03-15 08:29 | P.CONAN_ITS ---
Documented by User: Bibi Medley NP 03/15/23 08:29 HPI - Anesthesia Eval Consult details Narrative: 37yo F for D&C Hysteroscopy, poss myomectomy/ polypectomy PMFSH Active Problems Active Problems: All Active Problems (Updated 03/13/23 @ 14:45 by Barbara Mota RN) PCOS (polycystic ovarian syndrome) (Acute) control counseling (Acute) Migraines (Acute) Well woman exam (Acute) Vertigo (Acute) Dizziness (Acute) Nosebleed (Acute) Balance problem (Acute) Low vitamin D level (Acute) Female pelvic pain (Acute) Microscopic hematuria (Acute) Physical exam (Acute) Vulvovaginitis due to Yin (Acute) Mild persistent asthma (Acute) Screen for STD (sexually transmitted disease) (Acute) Vulvovaginitis (Acute) Abnormal uterine bleeding (Acute) Bacterial vaginosis (Acute) Upper respiratory tract infection (Acute) Viral infection (Acute) Chronic GERD (Acute) Morbid obesity (Acute) Hypothyroid (Acute) Past Medical History Medical History Asthma Chronic GERD Hypothyroid Morbid obesity PCOS (polycystic ovarian syndrome) Viral infection Family History Family History Father Hypertension Pure hypercholesterolemia Mother Asthma Hypertension Maternal Grandfather Stroke Paternal Grandfather Diabetes Maternal Uncle Colon cancer Surgical History Surgical History No pertinent past surgical history Social History Social History Household Members: Children Housing: House Alcohol intake: current Alcohol intake frequency: holidays/special occasions only Alcohol type: wine Patient Tobacco Use Status: Never used Tobacco e-Cigarette/Vaping Use: Never Used Second Hand Smoke Exposure: Yes Use of substances other than those prescribed or required for medical reasons: No Are you DNR?: No Advance Directives: No Advance Directives Information Provided: Yes Advance Directives on File: No Recently lost weight without trying: No Eating poorly because of decreased appetite: No Nutrition Risks: No Nutritional Risk Patient : No FDLMP: 02/11/23 Poor oral hygiene: No service: No Current occupational status: employed Current occupation: customer services Current occupational exposures/hazards: No Sexual orientation: Straight/Heterosexual Gender identity: Female Cognitive needs: No Hearing needs: No Vision needs: No Meds Allergies Allergy/AdvReac Type Severity Reaction Status Date / Time No Known Allergies Allergy Verified 03/13/23 17:27 Exam Exam Date and Time: March 15, 2023 0829 Height,Weight and Vital Signs: Height 5 ft 4 in Weight 115.212 kg Assessment and Plan Assessment Anesthesia Assessment: Chart Reviewed Documented by User: Tonia Mata MD 03/16/23 10:32 [facility] Active Problems Active Problems: All Active Problems (Updated 03/16/23 @ 10:08 by Tonia Smith MD) PCOS (polycystic ovarian syndrome) (Acute) control counseling (Acute) Migraines (Acute) Well woman exam (Acute) Vertigo (Acute) Dizziness (Acute) Nosebleed (Acute) Balance problem (Acute) Low vitamin D level (Acute) Female pelvic pain (Acute) Microscopic hematuria (Acute) Physical exam (Acute) Vulvovaginitis due to Yin (Acute) Mild persistent asthma (Acute)- Inhaler prn Screen for STD (sexually transmitted disease) (Acute) Vulvovaginitis (Acute) Abnormal uterine bleeding (Acute) Bacterial vaginosis (Acute) Upper respiratory tract infection (Acute) Viral infection (Acute) Chronic GERD (Acute) Morbid obesity (Acute)BMI 43.6 Hypothyroid (Acute) Denies STEVE Past Medical History Medical History Asthma Chronic GERD Hypothyroid Morbid obesity PCOS (polycystic ovarian syndrome) Viral infection Family History Family History Father Hypertension Pure hypercholesterolemia Mother Asthma Hypertension Maternal Grandfather Stroke Paternal Grandfather Diabetes Maternal Uncle Colon cancer Family history of problems with anesthesia: No Surgical History Surgical History No pertinent past surgical history History of Problems with Anesthesia: No Social History Social History Household Members: Children Housing: House Alcohol intake: current Alcohol intake frequency: holidays/special occasions only Alcohol type: wine Patient Tobacco Use Status: Never used Tobacco e-Cigarette/Vaping Use: Never Used Second Hand Smoke Exposure: Yes Use of substances other than those prescribed or required for medical reasons: No Are you DNR?: No Advance Directives: No Advance Directives Information Provided: Yes Advance Directives on File: No Recently lost weight without trying: No Eating poorly because of decreased appetite: No Nutrition Risks: No Nutritional Risk Patient : No FDLMP: 02/11/23 Poor oral hygiene: No service: No Current occupational status: employed Current occupation: [employer] services Current occupational exposures/hazards: No Sexual orientation: Straight/Heterosexual Gender identity: Female Cognitive needs: No Hearing needs: No Vision needs: No Meds Allergies Allergy/AdvReac Type Severity Reaction Status Date / Time No Known Allergies Allergy Verified 03/13/23 17:27 Exam Airway Mallampati Class: I TM Dist: >3cm Neck ROM: Full Loose/Missing/Broken Teeth: No (Denies broken, loose, missing teeth) Heart: RRR Lungs: CTAB Assessment and Plan Assessment Anesthesia Assessment: Anesthesia Plan Discussed Final Anesthetic Review Family History of Problems with Anesthesia: No History of Problems with Anesthesia: No NPO: Yes ASA Class: III Final Preanesthetic Review: No Changes in Pt Med Stat, Meds/Allgs Chart Reviewed, Consent Obtained/Reviewed and Anes Risks/Benef Reviewed Patient Risk: Intermediate Procedure Risk: Low Assessment/Block/Sedation in SS: Assess/Block/Sedation-SS Anesthetic Plan Anesthetic Plan: GA Disposition: Standard PACU
[2023-03-16 10:31] VITALS: BP 114/75; PULSE 79; RESP 16; TEMP 36.9; O2SAT 98
[2023-03-16] MEDS: Lactated Ringers 1,000 ML 100 ML IVCONT (10:32)
--- NOTE | 2023-03-16 10:34 | MHC.SHP ---
Pre-Procedural Eval Section A Date of Service: 03/16/23 The patient is an INPATIENT: No Changes since office visit: No Cold of Flu in the past 2 weeks, No New Medical Problems, No Changes in Medication and No Patient answered all questions The History & Physical has been completed within 30 days and I have reviewed it.: Yes Section B Chief Complaint: Abnormal uterine and vaginal bleeding, unspecified Allergies: Allergies Allergy/AdvReac Type Severity Reaction Status Date / Time No Known Allergies Allergy Verified 03/13/23 17:27 Plan Diagnosis/Plan: Unchanged I have reviewed the history and physical and performed a pertinent physical examination on my patient. No changes have occurred unless specified. Time Spent With Patient Time: Total time managing care of this patient today ____ minutes.
[2023-03-16 10:45] LABS: UPreg QC Valid YES; Urine Pregnancy NEGATIVE (NEGATIVE)
--- NOTE | 2023-03-16 11:17 | PM.OP ---
Brief Operative Note Date of Service: 03/16/23 Pre-op diagnosis: Abnormal uterine bleeding Post-op diagnosis: same (Normal endometrial cavity) Procedure: Hysteroscopy D&C Surgeon: Misha Pittman MD Anesthesia: GLMA Was an Mortgage Processing Clerk used for this Procedure?: No Estimated blood loss (mL): 0 Pathology: other (Endometrial Scrapping.) Condition: stable Disposition: PACU
--- NOTE | 2023-03-16 11:18 | W.PM.OPN ---
Operative Note Operative Note Date of Service: 03/16/23 Narrative: Preop Diagnosis: Abnormal uterine bleeding Operation: Diagnostic Hysteroscopy, Dilataion & Curettage Post Op Diagnosis: Normal endometrial and endocervical cavity, no evidence of pathology QBL: Minimal Anesthesia: GLMA Surgeon: Misha Pittman MD Supervisor Fish Processing: None Complication: None Pathology: Endometrial Scrapings Procedure: The patient was put in the dorsal lithotomy position, scrubbed, and draped in the usual manner. A sterile speculum was inserted in the patient's vagina. The anterior lip of the cervix was grasped with a single tooth tenaculum. The cervix was dilated up to 5 mm, then the scope was inserted in the patient's uterus. Inspection revealed normal endocervical & endometrial cavity with no evidence of pathology. The scope was taken out of the uterine cavity , then sharp curetting was carried on with no complications. At the end of the procedure, all instruments were taken out of the patient uterine and vaginal cavity. The single tooth tenaculum was removed and homeostasis was assured using pressure. The patient tolerated the procedure well and was transferred to the PACU in a stable condition.
[2023-03-16 11:26] VITALS: BP 120/76; PULSE 74; RESP 16; TEMP 37.1; O2SAT 98
[2023-03-16 11:31] VITALS: BP 118/69; PULSE 63; RESP 18; O2SAT 98
[2023-03-16 11:41] VITALS: BP 112/69; PULSE 88; RESP 18; O2SAT 99
[2023-03-16] MEDS: Acetaminophen 325 MG TABLET 650 MG PO (11:55)
[2023-03-16] MEDS: oxyCODONE HCl Immed Release 5 MG TABLET PO (11:55)
[2023-03-16 11:56] VITALS: BP 129/93; PULSE 60; RESP 16; O2SAT 100
[2023-03-16 12:11] VITALS: BP 133/81; PULSE 62; RESP 16; TEMP 36.2; O2SAT 100
== END 2023-03-16 12:45 | disposition home or self-care (01) ==
PROVIDERS: Nurse Practitioner; PCP Internal Medicine; Visit Provider Obstetrics & Gynecology
PROC: 0UDB8ZZ Extraction of Endometrium, Via Natural or Artificial Opening Endoscopic (ICD-10-PCS; CPT 58558; principal; 2023-03-16 11:30)
DX: N93.9 Abnormal uterine and vaginal bleeding, unspecified (principal); E28.2 Polycystic ovarian syndrome; B96.89 Other specified bacterial agents as the cause of diseases classified elsewhere; N76.0 Acute vaginitis; E03.9 Hypothyroidism, unspecified; K21.9 Gastro-esophageal reflux disease without esophagitis; J45.30 Mild persistent asthma, uncomplicated; E66.01 Morbid (severe) obesity due to excess calories; Z68.41 Body mass index [BMI] 40.0-44.9, adult; Z79.51 Long term (current) use of inhaled steroids; Z79.899 Other long term (current) drug therapy; Z87.891 Personal history of nicotine dependence
CPT/HCPCS: 58558; 81025; 88305; J1100; J1885; J2250; J2405; J3010

== ENCOUNTER → 2023-03-16 09:42 | Outpatient (BNV) | payer OTHER, SELFPAY | PROVIDERS: PCP Internal Medicine; Visit Provider Obstetrics & Gynecology | DX: N93.9 Abnormal uterine and vaginal bleeding, unspecified (principal) | CPT/HCPCS: 58558 ==

== ENCOUNTER 2023-03-27 13:21 | Outpatient (AMB) | payer OTHER, SELFPAY ==
--- NOTE | 2023-03-27 13:04 | MHC.OFFVIS ---
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 The patient is interested in future fertility. The pathology showed the following: Endometrium, curettage:? Mixed pattern secretory and inactive endometrium with breakdown; no atypia or hyperplasia identified. The following workup was done.: H&H= 14/43.5 TSH, prolactin, hCG, GC and chlamydia were negative. Co testing was done was negative. Pelvic ultrasound was unremarkable. [facility] Medical History Asthma Chronic GERD Hypothyroid Morbid obesity PCOS (polycystic ovarian syndrome) Viral infection Surgical History No pertinent past surgical history Family History Father Hypertension Pure hypercholesterolemia Mother Asthma Hypertension Maternal Grandfather Stroke Paternal Grandfather Diabetes Maternal Uncle Colon cancer Social History Household Members: Children Housing: House Alcohol intake: current Alcohol intake frequency: holidays/special occasions only Alcohol type: wine Patient Tobacco Use Status: Never used Tobacco e-Cigarette/Vaping Use: Never Used Second Hand Smoke Exposure: Yes service: No Current occupational status: employed Current occupation: customer services Current occupational exposures/hazards: No Sexual orientation: Straight/Heterosexual Gender identity: Female Cognitive needs: No Hearing needs: No Vision needs: No Female Reproductive History Menstrual Age of Menarche: 7 Date of last menstrual period: 03/13/23 Review of Systems Const All systems reviewed & are unremarkable except as noted in HPI and below Reports as per HPI and Reports no additional complaints GI Reports no additional complaints Reports no additional complaints Assessment & Plan Assessment & Plan (1) Abnormal uterine bleeding: Code(s): N93.9 - Abnormal uterine and vaginal bleeding, unspecified Plan: Discussed with the patient the results of the work up done and options of treatment including but not limited to cyclic Progesterone, Mirena IUD. All pros, cons, risks and benefits of each option were discussed with the patient and the patient decided to go ahead with cyclic Prometrium, so a more detailed discussion re: Progesterone treatment including mechanism of action, benefits (regular menses, endometrial protection form unopposed estrogen and reduction in the risk of endometrial hyperplasia and/or cancer ...), risks (Thrombosis, mood changes, weight gain, breast soreness, ? increased breast ca, others). Instructions were given to use a back- up method for contraception since this is not a method control in case it is desired and to schedule a 3 month follow-up appoint; patient verbalized understanding and agreed with the plan. I spent a total of 20 minutes reviewing the chart, talking to the patient via video and documenting in the medical record. Medications: New progesterone micronized (Prometrium) Take the pill 1 tablet a day cyclically every month from day 15-24 day 1 being the 1st day of next menstrual cycle 200 mg PO BEDTIME 10 days 30 caps 0RF Telehealth Telehealth Location of provider rendering services: practice address Location of patient: address on file Patient Identification confirmed using: Name, : Yes Telehealth method: video Patient verbally consented to treatment: Yes Patient verbally consented to billing insurance company: Yes Patient informed of any privacy concerns related to visit: Yes Coding Level of Care Code Tele Est Pt Level 3 (13502) Diagnoses Abnormal uterine bleeding N93.9
== END 2023-03-27 15:02 | disposition home or self-care (01) ==
LOC: HO.HWS 13:21
PROVIDERS: PCP Internal Medicine; Visit Provider Obstetrics & Gynecology
DX: N93.9 Abnormal uterine and vaginal bleeding, unspecified (principal)
CPT/HCPCS: 99213

== ENCOUNTER → 2023-03-27 13:21 | Outpatient (BNVA) | payer OTHER, SELFPAY | PROVIDERS: PCP Internal Medicine; Visit Provider Obstetrics & Gynecology ==

== ENCOUNTER 2023-06-20 11:24 | Outpatient (REF) | payer OTHER, SELFPAY ==
[2023-06-20 13:13] LABS: Thyroid Stimulating Hormone 2.66 uIU/mL (0.32-4.0)
== END 2023-06-20 11:25 | disposition home or self-care (01) ==
LOC: HO.LAB 11:24
PROVIDERS: PCP Internal Medicine; Visit Provider Internal Medicine
DX: E03.9 Hypothyroidism, unspecified (principal)
CPT/HCPCS: 36415; 84443

== ENCOUNTER 2023-07-03 15:32 | Outpatient (AMB) | payer OTHER, SELFPAY ==
[2023-07-03 15:37] VITALS: BP 122/80; BMI 42.7
--- NOTE | 2023-07-03 15:37 | A.OFFPC_ITS ---
Vital Signs 07/03/23 15:37 Height 5 ft 4 in Weight 249 lb BMI 42.7 BP 122/80 Blood Pressure Location Lt brachial Position Sitting Intake Visit Reasons: Med review-thyroid Intake Note: Patient here for med review and labs Medical Numerical Control Operator Required: No Accompanied by: Self / Same As Patient Allergies No Known Allergies Allergy (Verified 07/03/23 15:54) Medication List - Last Reconciled 07/03/23 by Herlinda Mitchell MD cholecalciferol (vitamin D3) 50 mcg PO DAILY levothyroxine 112 mcg PO DAILY 90 days loratadine (Allergy Relief (loratadine)) 10 mg PO DAILY 90 days pantoprazole 40 mg PO DAILY 90 days progesterone micronized (Prometrium) 200 mg PO BEDTIME 10 days Ventolin HFA 90 mcg/actuation (albuterol sulfate) 2 puffs PO Q6H PRN NS Tobacco use date assessed: 03/13/23 Dental Screening Dental Screen Date: 07/03/23 Did you have a dental visit in the last 12 months?: No Did you have a dental problem in the last 6 months where you did not have access to dental care?: No Was dental information given to patient?: Patient has dentist HPI HPI Comments History of Present Illness Details This is a 38-year-old female with hypothyroidism, morbid obesity, chronic GERD and asthma that comes today for follow-up on her thyroid. TSH is normal and she has 4 month . Levothyroxine will be kept the same dose. She is morbidly obese with a BMI of 42.7 and was advised to follow a healthy diet. GERD stable with PPIs as needed. Use rescue inhaler as needed for her asthma. [facility] Medical History (Updated 07/03/23 @ 17:22 by Herlinda Mitchell MD) Asthma PCOS (polycystic ovarian syndrome) Viral infection Chronic GERD Morbid obesity Hypothyroid Surgical History No pertinent past surgical history Family History Father Hypertension Pure hypercholesterolemia Mother Asthma Hypertension Maternal Grandfather Stroke Paternal Grandfather Diabetes Maternal Uncle Colon cancer Social History Household Members: Children Housing: House Alcohol intake: current Alcohol intake frequency: holidays/special occasions only Alcohol type: wine Patient Tobacco Use Status: Never used Tobacco e-Cigarette/Vaping Use: Never Used Second Hand Smoke Exposure: Yes service: No Current occupational status: employed Current occupation: customer services Current occupational exposures/hazards: No Sexual orientation: Straight/Heterosexual Gender identity: Female Cognitive needs: No Hearing needs: No Vision needs: No Female Reproductive History Menstrual Age of Menarche: 7 Questionnaire Thrive Questionnaire Date Thrive assessed: 03/13/23 ALINE-7 AMB Questionnaire ALINE-7 Date ALINE - 7 assessed: 03/13/23 Source: Developed by Drs. Tutu Pratt, Deyanira Smith, Daryl Waller and colleagues, with an educational elizabeth from [employer]. Review of Systems Const All systems reviewed & are unremarkable except as noted in HPI and below Eyes Reports no additional complaints, Denies change in vision and Denies other visual disturbances Card Denies chest pain at rest, Denies chest pain with activity, Denies edema, Denies irregular heart rhythm, Denies claudication, Denies dyspnea, Denies dyspnea on exertion, Denies orthopnea, Denies paroxysmal nocturnal dyspnea and Denies slow heart rate Resp Denies cough, Denies dyspnea and Denies dyspnea on exertion GI Denies abdominal pain, Denies change in bowel habits, Denies excessive flatus, Denies nausea and Denies vomiting Denies urinary incontinence, Denies urinary hesitancy and Denies urinary urgency Musc Denies abnormal gait, Denies atrophy, Denies deformity and Denies limited range of motion Skin/Breast Denies bleeding lesions, Denies changing lesions and Denies rash Neuro Denies abnormal gait and Denies lack of coordination Physical exam (Primary Care) Vital Signs: Last Vital Signs BP 122/80 07/03/23 15:37 BMI result Body Mass Index 42.7 Tobacco/Smoking Status: Tobacco use Status Tobacco use date assessed 03/13/23 07/03/23 15:44 Patient Tobacco Use Status Never used Tobacco 07/03/23 15:44 e-Cigarette/Vaping Use Never Used 07/03/23 15:44 Thrive Assessment: Date of Thrive Assessment Date Thrive assessed 03/13/23 07/03/23 15:44 Eyes General: appearance normal, both eyes and all related structures Eyelids: Yes eyelids normal Conjunctivae: conjunctivae normal Neck Neck: Yes normal visual inspection and Yes supple Resp Effort & Inspection: normal respiratory effort Auscultation: clear to auscultation bilaterally Cardio Jugular venous distension: no JVD Rate: regular rate Rhythm: regular rhythm Heart sounds: S1 normal heart sound present and S2 normal heart sound present Extrem General: Yes full ROM Assessment and Plan Assessment & Plan (1) Hypothyroid: Code(s): E03.9 - Hypothyroidism, unspecified Plan: Continue levothyroxine. (2) Chronic GERD: Code(s): K21.9 - Gastro-esophageal reflux disease without esophagitis Plan: Continue PPIs as needed. (3) Morbid obesity: Code(s): E66.01 - Morbid (severe) obesity due to excess calories Plan: Follow a healthy diet while . (4) Asthma: Code(s): J45.909 - Unspecified asthma, uncomplicated Plan: Use rescue inhaler as needed. Orders: Orders Thyroid Stimulating Hormone 4 Months E03.9 - Hypothyroidism, unspecified Coding Level of Care Code Est Pt Level 4 (01054) Diagnoses Hypothyroid E03.9 Chronic GERD K21.9 Morbid obesity E66.01 Asthma J45.909 Time Spent (min) 20
== END 2023-07-03 16:01 | disposition home or self-care (01) ==
PROVIDERS: PCP Internal Medicine; Visit Provider Internal Medicine
DX: E03.9 Hypothyroidism, unspecified (principal); E66.01 Morbid (severe) obesity due to excess calories; Z68.41 Body mass index [BMI] 40.0-44.9, adult; K21.9 Gastro-esophageal reflux disease without esophagitis; J45.909 Unspecified asthma, uncomplicated
CPT/HCPCS: 99214

== ENCOUNTER 2024-05-07 16:37 | Emergency (ER) | payer OTHER, SELFPAY ==
[2024-05-07 17:12] VITALS: BP 138/83; PULSE 92; RESP 18; TEMP 36.9; O2SAT 100; BMI 40.7
--- NOTE | 2024-05-07 17:12 | ED_ITS ---
HPI - General Adult General Chief complaint: Urogenital-Female Stated complaint: hematuria, painful urination Time Seen by Provider: 05/07/24 17:52 Source: patient Mode of arrival: ambulatory Limitations: no limitations History of Present Illness ED Provider: debi HPI narrative: Patient is a 38-year old female presenting with dysuria and hematuria prior to arrival, suprapubic pain. Describes hematuria as light pink urine. Denies back or flank pain, nausea, vomiting, diarrhea. Denies fevers. MD complaint: dysuria Associated symptoms: denies other symptoms Treatments prior to arrival: none Related Data Previous Rx's ?Medication ?Instructions ?Recorded Ventolin HFA 90 mcg/actuation 2 puff PO Q6H PRN for dyspnea #18 12/14/22 aerosol inhaler (albuterol sulfate) ea loratadine 10 mg tablet (Allergy 10 mg PO DAILY 90 days #90 tabs 12/14/22 Relief (loratadine)) progesterone micronized 200 mg 200 mg PO BEDTIME 10 days #30 caps 04/17/23 capsule (Prometrium) cholecalciferol (vitamin D3) 50 50 mcg PO DAILY #90 tabs 06/16/23 mcg (2,000 unit) tablet pantoprazole 40 mg tablet,delayed 40 mg PO DAILY 90 days #90 tabs 06/16/23 release levothyroxine 112 mcg tablet 112 mcg PO DAILY 90 days #90 tabs 03/15/24 cefuroxime axetil 250 mg tablet 250 mg PO BID #14 tabs 05/07/24 Allergies Allergy/AdvReac Type Severity Reaction Status Date / Time No Known Allergies Allergy Verified 05/07/24 17:14 Review of Systems Review of Systems: As per HPI. Yes all other systems are reviewed and are negative Constitutional: Constitutional: Reports as per HPI PMF Past Medical History Medical History (Updated 05/07/24 @ 17:54 by Lyssa Justice NP) Asthma PCOS (polycystic ovarian syndrome) Viral infection Chronic GERD Morbid obesity Hypothyroid Surgical History No pertinent past surgical history Family History Family History Father Hypertension Pure hypercholesterolemia Mother Asthma Hypertension Maternal Grandfather Stroke Paternal Grandfather Diabetes Maternal Uncle Colon cancer Social History Social History Household Members: Children Housing: House Alcohol intake: current Alcohol intake frequency: holidays/special occasions only Alcohol type: wine Patient Tobacco Use Status: Never used Tobacco e-Cigarette/Vaping Use: Never Used Second Hand Smoke Exposure: Yes Advance Directives: No Advance Directives Information Provided: No service: No Current occupational status: employed Current occupation: customer services Current occupational exposures/hazards: No Sexual orientation: Straight/Heterosexual Gender identity: Female Cognitive needs: No Hearing needs: No Vision needs: No Physical Exam ED Vital Signs: Vital Signs - 24 hr 05/07/24 17:12 Temperature 98.4 F Pulse Rate 92 Respiratory Rate 18 Blood Pressure 138/83 Pulse Oximetry 100 Oxygen Delivery Method Room Air BMI result Body Mass Index 40.7 Vital signs have been reviewed and appear to be correct. Blood pressure normal. Heart rate normal. Respiratory rate normal. Temperature normal. Oxygen saturation normal. Const General: cooperative, healthy appearing and no acute distress Orientation/consciousness: oriented to person, oriented to place, oriented to time and patient oriented x3 Limitations: no limitations HENMT Head: Yes normocephalic and Yes atraumatic Ears: external ears normal General nose exam: Normal external nose present Face and sinus: Yes face symmetric Mouth: oropharynx normal and moist mucous membranes Throat: Yes uvula midline Eyes Pupils: Equal, round and reactive pupils present Neck Neck: Yes normal visual inspection and Yes supple Resp Effort & Inspection: normal respiratory effort and able to speak in complete sentences Auscultation: clear to auscultation bilaterally Cardio Rate: regular rate Rhythm: regular rhythm Heart sounds: S1 normal heart sound present and S2 normal heart sound present GI Palpation (GI): Soft to palpation and nontender Auscultation: normoactive bowel sounds General: Yes no CVA tenderness Back/Spine/Pelvis Back: no CVA tenderness Skin General skin exam: elasticity normal and turgor normal Neuro General: oriented to person, oriented to place, oriented to time, patient oriented x3, moves all extremities, no focal motor deficits and CN's II-XI intact bilaterally Cranial nerves: Yes Equal, round and reactive pupils present Cognition (Neuro): normal cognition Extrem General: Yes full ROM, Yes no pedal edema and Yes no calf tenderness Psych Mental Status: mental status grossly normal Affect: normal affect Thought process: Normal thought process present Course Course Course Narrative: This is a rapid medical exam performed by Mark Justice NP: Additional HPI, ROS, PE not included below will be deferred to primary provider. Patient is a 38- year old female presenting with dysuria and hematuria prior to arrival, suprapubic pain. Denies back or flank pain, n/v/d. Plan: UA, upreg Medical Decision Making Medical Decision Making [facility] Narrative: Patient is a 38-year old female presenting with dysuria and hematuria prior to arrival, suprapubic pain. On exam patient is awake, A+Ox3, VS WNL, afebrile, normal neurological exam without focal deficits, physical exam findings as above. Given reported symptoms and physical exam findings, initial differential includes UTI, pyelonephritis. Urinalysis notable for 2+ leukocytes, positive nitrites, 3+ blood, > 50 WBCS. Will treat for UTI with cefuroxime. Follow up with PCP. Return precautions discussed. Patient verbalized understanding of and agreement with plan. Differential Diagnosis Differential Diagnoses: The differential diagnosis associated with the presentation includes As per [facility] Lab Data [facility] Lab Attestation statement: I reviewed the patient's lab results. As per [facility] Labs: Lab Results 05/07/24 Range/Units 17:24 Urine Color Yellow Urine Appearance Cloudy Urine pH 6.0 (5.0-9.0) Ur Specific [place] 1.020 (1.005-1.025) Urine Protein 300 (3+) H (Neg-Trace) mg/dL Urine Glucose (UA) Negative (Negative) mg/dL Urine Ketones Negative (Negative) mg/dL Urine Blood Large (3+) H (Negative) Urine Nitrite Positive H (Negative) Ur Leukocyte Esterase Moderate (2+) H (Negative) Urine RBC >20 H (0-2) /HPF Urine WBC >50 H (0-5) /HPF Ur Squamous Epith Cells 3-5 (0-2) /HPF Urine Bacteria 1+ (None Seen) Hyaline Casts 0-2 (0-2) /LPF Urine Test NEGATIVE (NEGATIVE) External Record Review External record reviewed: Inpatient record, Office record and Outpatient record Prescription Management I considered prescription management with: Antibiotic Discharge Plan Discharge Clinical Impression: Urinary tract infection Patient Disposition: Home, Self-Care Instructions: Urinary Tract Infection in Women (DC) Additional Instructions: You have been evaluated in the emergency department today for your urinary symptoms. Your evaluation, including urinalysis, suggests that your symptoms are due to urinary tract infection. Please take your prescribed antibiotics for the full course of medication as directed. Please follow-up with your primary care provider within 2 days. Return to the emergency department if you experience fevers 100.4? F or greater, worsening or uncontrolled pain, vomiting, flank pain, or for any other concerning symptoms. Prescriptions: New cefuroxime axetil 250 mg tablet 250 mg PO BID Qty: 14 0RF No Action loratadine [Allergy Relief (loratadine)] 10 mg tablet 10 mg PO DAILY 90 Days Qty: 90 3RF albuterol sulfate [Ventolin HFA] 90 mcg/actuation HFA aerosol inhaler 2 puff PO Q6H PRN (Reason: for dyspnea) Qty: 18 2RF progesterone micronized [Prometrium] 200 mg capsule 200 mg PO BEDTIME 10 Days Qty: 30 3RF Rx Instructions: Take the pill 1 tablet a day cyclically every month from day 15-24 day 1 being the 1st day of next menstrual cycle pantoprazole 40 mg tablet,delayed release (DR/EC) 40 mg PO DAILY 90 Days Qty: 90 2RF cholecalciferol (vitamin D3) 50 mcg (2,000 unit) tablet 50 mcg PO DAILY Qty: 90 1RF levothyroxine 112 mcg tablet 112 mcg PO DAILY 90 Days Qty: 90 0RF Print Language: Bulgarian
[2024-05-07 17:36] LABS: Appearance Urine Cloudy; Color Urine Yellow; Glucose Urine UA Negative (Negative); Leukocyte Esterase Urine Moderate (2+) (Negative); Nitrite Urine Positive (Negative); UMIC TRIGGER UACC YES; Urine Blood Large (3+) (Negative); Urine Ketones Negative (Negative); Urine Protein 300 (3+) mg/dL (Neg-Trace)
[2024-05-07 17:38] LABS: UPreg QC Valid YES; Urine Pregnancy NEGATIVE (NEGATIVE)
[2024-05-07 17:39] LABS: Bacteria Urine 1+ (None Seen); Hyaline Casts Urine 0-2 /LPF (0-2); RBC Urine >20 /HPF (0-2); UACC Culture Trigger YES; WBC Urine >50 /HPF (0-5)
[2024-05-07 18:05] VITALS: BP 138/83; PULSE 92; RESP 18; TEMP 36.9; O2SAT 100
== END 2024-05-07 18:06 | disposition home or self-care (01) ==
PROVIDERS: Registered Nurse Emergency; Emergency Provider Internal Medicine; PCP Internal Medicine
DX: N39.0 Urinary tract infection, site not specified (principal)
CPT/HCPCS: 81001; 81025; 87086; 87088; 87147; 87186; 99282; 99283

== ENCOUNTER 2024-05-22 10:55 | Outpatient (AMB) | payer OTHER, SELFPAY ==
[2024-05-22 10:57] VITALS: BP 132/88; PULSE 70; O2SAT 99; BMI 41.0
--- NOTE | 2024-05-22 10:57 | A.OFFPC_ITS ---
Vital Signs 05/22/24 10:57 Height 5 ft 4 in Weight 239 lb BMI 41.0 BP 132/88 Blood Pressure Location Lt brachial Position Sitting Pulse 70 Pulse Source Pulse Oximeter Pulse Oximetry (%) 99 Oxygen Delivery Method Room Air Intake Visit Reasons: PE- needs PHQ9 Tailor Fitter Required: No Allergies No Known Allergies Allergy (Verified 05/22/24 11:11) Medication List - Last Reconciled 05/22/24 by Charu Negrete PA-C cholecalciferol (vitamin D3) 50 mcg PO DAILY levothyroxine 112 mcg PO DAILY 90 days loratadine (Allergy Relief (loratadine)) 10 mg PO DAILY 90 days progesterone micronized (Prometrium) 200 mg PO BEDTIME 10 days Ventolin HFA 90 mcg/actuation (albuterol sulfate) 2 puffs PO Q6H PRN NS Tobacco use date assessed: 05/22/24 Dental Screening Dental Screen Date: 05/22/24 Did you have a dental visit in the last 12 months?: Yes Did you have a dental problem in the last 6 months where you did not have access to dental care?: No Was dental information given to patient?: Patient has dentist HPI PE- needs PHQ9 HPI Details 39-year-old female with past medical his tory of hypothyroidism, morbid obesity, chronic GERD, and asthma last seen by Dr. Thapa June 2023 coming in for annual physical. In review of the notes, patient was seen in [facility] 05/07/2024 diagnosed with urinary tract infection and treated with cefuroxime. Patient was seen by [facility] O[facility]YN 11/28/2023. Patient states she has been feeling generally well. She gave December 2023 to full term male with no complications. She does mention since giving her vertigo has returned. She previously had vertigo and underwent PT which helped in the past. She continues to follow with [facility] dish cloth inspector and will have routine pap at that time. She does mention she began having suprapubic pain last week which had initially resolved with treatment of UTI but has returned. [facility] Medical History Asthma PCOS (polycystic ovarian syndrome) Viral infection Chronic GERD Morbid obesity Hypothyroid Surgical History No pertinent past surgical history Family History Father Hypertension Pure hypercholesterolemia Mother Asthma Hypertension Maternal Grandfather Stroke Paternal Grandfather Diabetes Maternal Uncle Colon cancer Social History Household Members: Children Housing: House Alcohol intake: current Alcohol intake frequency: holidays/special occasions only Alcohol type: wine Patient Tobacco Use Status: Never used Tobacco e-Cigarette/Vaping Use: Never Used Second Hand Smoke Exposure: Yes service: No Current occupational status: employed Current occupation: customer services Current occupational exposures/hazards: No Sexual orientation: Straight/Heterosexual Gender identity: Female Cognitive needs: No Hearing needs: No Vision needs: No Female Reproductive History Menstrual Age of Menarche: 7 Questionnaire PHQ-9 Over the last 2 weeks, how often have you been bothered by any of the following problems? 1. Little interest or pleasure in doing things: not at all 2. Feeling down, depressed, or hopeless: not at all 3. Trouble falling or staying asleep, or sleeping too much: several days 4. Feeling tired or having little energy: several days 5. Poor appetite or overeating: not at all 6. Feeling bad about yourself - or that you are a failure or have let yourself or your family down: not at all 7. Trouble concentrating on things, such as reading the newspaper or watching television: not at all 8. Moving or speaking so slowly that other people could have noticed. Or the opposite - being so fidgety or restless that you have been moving around a lot more than usual: not at all 9. Thoughts that you would be better off or of hurting yourself in some way: not at all Total score: 2 Depression Screening Interpretation: Negative Depression Screening Done: Yes 68362 - PHQ-9 Billing: Yes Source: Developed by Drs. Tutu Pratt, Deyanira Smith, Daryl Waller and colleagues, with an educational elizabeth from [employer]. Thrive Questionnaire Date Thrive assessed: 05/22/24 I am a: Patient What is your living situation today?: I have a steady place to live Within the past 12 months, did the food you bought not last and you didn't have the money to get more?: Never true Within the past 12 months, did you worry whether your food would run out before you got money to buy more?: Never true Do you have trouble paying for medicines?: No Do you have trouble getting transportation to medical appointments?: No Do you have trouble paying your heating and electricity bill?: No Do you have trouble taking care of your child, family member or friend?: No Do you have trouble with day-to-day activities such as bathing, preparing meals, shopping, managing finances, etc.?: No Are you currently unemployed and looking for a job?: No Are you interested in more education?: No Please select the resources that you would like help with: Childcare Currently or been in a relationship where the following occur: No concerns reported THRIVE Score: 0 AUDIT C Alcohol Use Questionnaire (AUDIT-C) 1. How often do you have a drink containing alcohol?: Never 3. How often do you have six or more drinks on one occasion?: Never Total Score: 0 ALINE-7 AMB Questionnaire ALINE-7 Date ALINE - 7 assessed: 05/22/24 Feeling nervous, anxious, or on edge: 0 = Not at all Not being able to stop or control worryin = Several days Worrying too much about different things: 0 = Not at all Trouble relaxin = Several days Being so restless that it is hard to sit still: 0 = Not at all Becoming easily annoyed or irritable: 0 = Not at all Feeling afraid as if something awful might happen: 0 = Not at all Total ALINE-7 score (0-4 normal; 5-9 mild; 10-14 moderate; 15-21 severe): 2 Source: Developed by Drs. Tutu Pratt, Deyanira Smith, Daryl Waller and colleagues, with an educational elizabeth from [employer]. ALINE-7 Assessment Billing ALINE-7 Assessment Tool: ALINE-7 Assessment 92521 Review of Systems Const Denies body aches, Denies fatigue, Denies fever(s), Denies frequent falls, Denies headache(s) and Denies weakness Eyes Reports no additional complaints and Denies change in vision ENT Denies dysphagia, Reports vertigo, Denies dizziness, Denies facial pain, Denies headache(s), Denies nasal congestion and Denies odynophagia Card Denies chest pain, Denies syncope, Denies irregular heart rhythm, Denies leg edema, Denies lightheadedness and Denies dyspnea Resp Denies cough and Denies dyspnea GI Details: Suprapubic pain Denies abdominal pain, Denies constipation, Denies dysphagia, Denies dyspepsia, Denies diarrhea, Reports nausea (With migraines), Denies odynophagia and Denies vomiting Denies urinary frequency, Denies dysuria, Denies urinary hesitancy and Denies urinary urgency Musc Denies back pain and Denies myalgias Skin/Breast Details: Multiple atypical nevi on both sides of the face and upper back. Neuro Reports vertigo, Denies dizziness, Denies syncope, Denies frequent falls, Denies headache(s) and Denies weakness Psych Reports no additional complaints Endo Denies fatigue Physical exam (Primary Care) Vital Signs: Last Vital Signs Pulse 70 05/22/24 10:57 BP 132/88 05/22/24 10:57 Pulse Ox 99 05/22/24 10:57 Oxygen Delivery Method Room Air 05/22/24 10:57 BMI result Body Mass Index 41.0 Tobacco/Smoking Status: Tobacco use Status Tobacco use date assessed 05/22/24 05/22/24 11:05 Patient Tobacco Use Status Never used Tobacco 05/22/24 11:05 e-Cigarette/Vaping Use Never Used 05/22/24 11:05 PHQ-9: PHQ-9 Score PHQ-9: Total score 2 05/22/24 11:26 Depression Screening Interpretation: Negative Thrive Assessment: Date of Thrive Assessment Date Thrive assessed 05/22/24 05/22/24 11:05 Currently or been in a relationship where the following occur: No concerns reported Const General: cooperative, healthy appearing, comfortable and no acute distress Orientation/consciousness: patient oriented x3 HENMT Head: Yes normocephalic Ears: hearing grossly normal bilaterally, external ears normal, TM's normal bilaterally and EAC's normal General nose exam: Normal external nose present Face and sinus: Yes normal facial exam and Yes sinuses nontender Mouth: Normal oral and palatal mucosa present and tongue normal Throat: Yes posterior oropharynx normal Eyes General: appearance normal, both eyes and all related structures Conjunctivae: conjunctivae normal Pupils: Equal, round and reactive pupils present EOM: EOMs intact bilaterally and No Nystagmus present Neck Neck: Yes normal visual inspection, Yes full ROM and Yes no lymphadenopathy Chest Chest palpation & inspection: normal inspection of the chest Resp Effort & Inspection: normal respiratory effort Auscultation: clear to auscultation bilaterally, no crackles, no rales, no rhonchi, no wheezes and breath sounds present Cardio Rate: regular rate Rhythm: regular rhythm Peripheral pulses: radial pulses present and dorsalis pedis present GI Inspection: Yes normal to inspection and No Abdominal wall edema Palpation (GI): Soft to palpation, not firm and nontender Auscultation: normal bowel sounds Rectal Exam - Female: deferred Other: Suprapubic tenderness to palpation General: Yes no CVA tenderness Back/Spine/Pelvis Back: no CVA tenderness Skin Other: Multiple atypical nevi on bilateral sides face and upper back. Neuro General: patient oriented x3 Cranial nerves: Yes Equal, round and reactive pupils present, Yes Midline tongue present, Yes Ability to bilaterally elevate shoulders present and No Nystagmus present Gait exam (Neuro): Normal gait present Extrem General: Yes normal to inspection, Yes full ROM, No no pedal edema and No edema Psych Speech and movement: Normal speech and movement present Affect: normal affect Insight: Good insight present (Psych) Judgement: Good judgement present (Psych) Office Procedures Flu Questionnaire Does the patient have a severe egg allergy?: No Does the patient have severe life threatening allergies?: No Does the patient have a fever or illness today?: No Has the patient ever had Guillain-[place] Syndrome?: No Has the patient ever had any past reaction to a flu shot?: No Immunizations Fluarix Triv [id number] (PF) 45 mcg (15 mcg x 3)/0.5 mL IM syringe Performing Provider: Charu Negrete PA-C [facility] Administered by: JANETH Perry on 05/22/24 11:32 Dose Route Admin Location Dispensed Lot Number Expiration Date NDC [employer] Sequestration Plant Manager 0.5 mL IM Left Deltoid 0.5 mL [id number] 02/02/25 [id number] [employer] VIS Given Date VIS Provided VIS Publication Date 05/22/24 Single Vaccine 21 Eligibility Eligibility Date Funding Source Not [facility] Eligible 05/22/24 Private Coding Level of Care Code Est Pt Level 3 (63442) Est Pt Prev Care 40-64y(16544) Diagnoses Asthma J45.909 PCOS (polycystic ovarian syndrome) E28.2 Chronic GERD K21.9 Morbid obesity E66.01 Hypothyroid E03.9 Vertigo R42 Migraines G43.909 Screening for STD (sexually transmitted disease) Z11.3 Atypical nevi D22.9 Annual physical exam Z00.00 Additional Codes ALINE-7 Assessment Billing - ALINE-7 Assessment Tool: ALINE-7 Assessment 10773 ([id number]) Assessment & Plan Assessment & Plan (1) Asthma: Code(s): J45.909 - Unspecified asthma, uncomplicated Category: Medical Plan: Asthma currently controlled on present medications. Continue on albuterol as needed. Avoid triggers such as allergies. (2) PCOS (polycystic ovarian syndrome): Code(s): E28.2 - Polycystic ovarian syndrome Category: Medical Plan: Continue to follow with [facility] gynecology. (3) Chronic GERD: Code(s): K21.9 - Gastro-esophageal reflux disease without esophagitis Category: Medical Plan: Avoid trigger foods such as citrus, tomato products, soda, caffeine, spicy foods and other foods that may be irritating to your stomach. Avoid laying flat 3-4 hours after eating and elevate the head of the bed 30 degrees to prevent acid from moving into the esophagus. Current symptoms have been well controlled without pantoprazole advised patient to use famotidine as needed. (4) Morbid obesity: Code(s): E66.01 - Morbid (severe) obesity due to excess calories Category: Medical Plan: Healthy diet and regular exercise is encouraged. (5) Hypothyroid: Code(s): E03.9 - Hypothyroidism, unspecified Category: Medical Plan: Continue on levothyroxine and we will order for updated blood work. (6) Vertigo: Code(s): R42 - Dizziness and giddiness Category: Medical Plan: Patient complaining of episodes of vertigo referral for PT placed. (7) Migraines: Code(s): G43.909 - Migraine, unspecified, not intractable, without status migrainosus Category: Medical Plan: Patient will have occasional migraines patient had migraine last month and prior to that episode had not had 1 in several years. Given Zofran for nausea related to migraines. (8) Screening for STD (sexually transmitted disease): Code(s): Z11.3 - Encounter for screening for infections with a predominantly sexual mode of transmission Category: Medical Plan: Orders placed today. (9) Atypical nevi: Code(s): D22.9 - Melanocytic nevi, unspecified Category: Medical Plan: Patient has an atypical nevi on both sides of the face and upper back. She mentions they do itch and appeared during with her last child. Referral placed for Dermatology. (10) Annual physical exam: Code(s): Z00.00 - Encounter for general adult medical examination without abnormal findings Category: Medical Plan: Patient is up-to-date on all recommended routine screenings and vaccinations for her age. Pap smear will be completed in July by Gynecology updated blood work ordered and we will follow up in 1 year or sooner pending blood work results or if new problems arise. Mammogram order placed Plan This note was constructed using voice recognition software. While every effort has been made to ensure accuracy and infant lead teacher, still areas may have been included sometimes these areas may affect the content or meeting of the given symptoms. Total time spent caring for the patient today was 30 minutes. This includes time spent before the visit reviewing the chart, time spent during the visit, and time spent after the visit and documentation. Orders: Orders MM tomosynthesis screening BI Today Z12.31 - Encounter for screening mammogram for malignant neoplasm of breast Comprehensive Met. Panel Today Z00.00 - Encounter for general adult medical examination without abnormal findings Complete Blood Count Auto Diff Today Z00.00 - Encounter for general adult medical examination without abnormal findings Free T4 (Free Thyroxine) Today Z00.00 - Encounter for general adult medical examination without abnormal findings UA CC w/rflx Micro + Cult Today R35.89 - Other polyuria CT NG by PCR Today Z00.00 - Encounter for general adult medical examination without abnormal findings Hepatitis B,C Profile Today Z11.3 - Encounter for screening for infections with a predominantly sexual mode of transmission HIV Ab/Ag Today Z11.3 - Encounter for screening for infections with a predominantly sexual mode of transmission Influenza [id number] Immunization Today Z23 - Encounter for immunization PT Evaluation and Treatment Today R42 - Dizziness and giddiness Lipid Panel Today Z00.00 - Encounter for general adult medical examination without abnormal findings TSH reflex Free T4 Today Z00.00 - Encounter for general adult medical examination without abnormal findings Vitamin B12 and Folate Today Z00.00 - Encounter for general adult medical examination without abnormal findings Vitamin D 25-OH (D2 and D3) Today Z00.00 - Encounter for general adult medical examination without abnormal findings Hemoglobin A1c Today Z00.00 - Encounter for general adult medical examination without abnormal findings Syphilis Screen Today Z11.3 - Encounter for screening for infections with a predominantly sexual mode of transmission T Spot TB Today Z11.1 - Encounter for screening for respiratory tuberculosis Referrals Dermatology Referral D22.9 - Melanocytic nevi, unspecified Medications: New famotidine (Acid Life Insurance Specialist (famotidine)) 10 mg PO BEDTIME 30 tabs 0RF ondansetron 4 mg PO Q8H 14 tabs 0RF
== END 2024-05-22 11:40 | disposition home or self-care (01) ==
PROVIDERS: PCP Internal Medicine
DX: Z00.00 Encounter for general adult medical examination without abnormal findings (principal); J45.909 Unspecified asthma, uncomplicated; E66.813 Obesity, class 3; Z68.41 Body mass index [BMI] 40.0-44.9, adult; E28.2 Polycystic ovarian syndrome; K21.9 Gastro-esophageal reflux disease without esophagitis; E03.9 Hypothyroidism, unspecified; R42 Dizziness and giddiness; G43.909 Migraine, unspecified, not intractable, without status migrainosus; Z11.3 Encounter for screening for infections with a predominantly sexual mode of transmission; D22.9 Melanocytic nevi, unspecified

== ENCOUNTER 2024-07-08 13:43 | Outpatient (AMB) | payer OTHER, SELFPAY ==
--- NOTE | 2024-07-08 13:47 | A.OFFPC_ITS ---
Vital Signs 07/08/24 13:48 Height 5 ft 4 in Weight 243 lb BMI 41.7 BP 134/86 Blood Pressure Location Lt brachial Position Sitting Pulse 86 Pulse Source Pulse Oximeter Pulse Oximetry (%) 100 Oxygen Delivery Method Room Air Intake Visit Reasons: cough/congestion/asthma Intake Note: pt c/o sinus pressure and cough X3 days Allergies No Known Allergies Allergy (Verified 07/08/24 13:53) Medication List - Last Reconciled 07/08/24 by Charu Negrete PA-C benzonatate 100 mg PO BID PRN cholecalciferol (vitamin D3) 50 mcg PO DAILY famotidine (Acid Clay Thrower (famotidine)) 10 mg PO BEDTIME levothyroxine 112 mcg PO DAILY 90 days loratadine (Allergy Relief (loratadine)) 10 mg PO DAILY 90 days progesterone micronized (Prometrium) 200 mg PO BEDTIME 10 days Ventolin HFA 90 mcg/actuation (albuterol sulfate) 2 puffs PO Q6H PRN NS Tobacco use date assessed: 05/22/24 Dental Screening Dental Screen Date: 05/22/24 HPI cough/congestion/asthma HPI Details 39-year-old female with past medical his tory of hypothyroidism, morbid obesity, chronic GERD, and asthma last seen May 2024 coming in for acute problem. Patient states last Sunday she began having a fever and stuffy nose. Last Sunday she developed a cough which has been persistent over the last week and is a nonproductive dry cough. She states the cough is worse in the morning and then settles down throughout the day. She has been using Tylenol and ibuprofen as needed for her headache and sinus pressure. Denies any other symptoms. [facility] Medical History Asthma PCOS (polycystic ovarian syndrome) Viral infection Chronic GERD Morbid obesity Hypothyroid Surgical History No pertinent past surgical history Family History Father Hypertension Pure hypercholesterolemia Mother Asthma Hypertension Maternal Grandfather Stroke Paternal Grandfather Diabetes Maternal Uncle Colon cancer Social History Household Members: Children Housing: House Alcohol intake: current Alcohol intake frequency: holidays/special occasions only Alcohol type: wine Patient Tobacco Use Status: Never used Tobacco e-Cigarette/Vaping Use: Never Used Second Hand Smoke Exposure: Yes service: No Current occupational status: employed Current occupation: customer services Current occupational exposures/hazards: No Sexual orientation: Straight/Heterosexual Gender identity: Female Cognitive needs: No Hearing needs: No Vision needs: No Female Reproductive History Menstrual Age of Menarche: 7 Questionnaire Thrive Questionnaire Date Thrive assessed: 05/22/24 I am a: Patient What is your living situation today?: I have a steady place to live Within the past 12 months, did the food you bought not last and you didn't have the money to get more?: Never true Within the past 12 months, did you worry whether your food would run out before you got money to buy more?: Never true Do you have trouble paying for medicines?: No Do you have trouble getting transportation to medical appointments?: No Do you have trouble paying your heating and electricity bill?: No Do you have trouble taking care of your child, family member or friend?: No Do you have trouble with day-to-day activities such as bathing, preparing meals, shopping, managing finances, etc.?: No Are you currently unemployed and looking for a job?: No Are you interested in more education?: No Please select the resources that you would like help with: Childcare Currently or been in a relationship where the following occur: No concerns reported THRIVE Score: 0 AUDIT C Alcohol Use Questionnaire (AUDIT-C) 1. How often do you have a drink containing alcohol?: Never 3. How often do you have six or more drinks on one occasion?: Never Total Score: 0 ALINE-7 AMB Questionnaire ALINE-7 Date ALINE - 7 assessed: 05/22/24 Source: Developed by Drs. Tutu Pratt, Deyanira Smith, Daryl Waller and colleagues, with an educational elizabeth from [employer]. Review of Systems Const Denies body aches, Denies chills, Denies fever(s), Reports headache(s) and Denies poor appetite Eyes Reports no additional complaints ENT Denies dizziness and Reports headache(s) Card Denies chest pain, Denies syncope, Denies edema, Denies irregular heart rhythm, Denies lightheadedness and Denies dyspnea Resp Reports cough, Denies hemoptysis, Denies excessive phlegm production, Reports pain with cough and Denies dyspnea GI Denies abdominal pain, Denies constipation, Denies diarrhea, Denies nausea and Denies vomiting Reports no additional complaints Musc Reports no additional complaints and Denies abnormal gait Skin/Breast Reports system reviewed and no additional complaints, except as documented Neuro Denies abnormal gait, Denies dizziness, Denies syncope and Reports headache(s) Psych Reports no additional complaints Physical exam (Primary Care) Vital Signs: Last Vital Signs Pulse 86 07/08/24 13:48 BP 134/86 07/08/24 13:48 Pulse Ox 100 07/08/24 13:48 Oxygen Delivery Method Room Air 07/08/24 13:48 BMI result Body Mass Index 41.7 Tobacco/Smoking Status: Tobacco use Status Tobacco use date assessed 05/22/24 07/08/24 13:48 Patient Tobacco Use Status Never used Tobacco 07/08/24 13:48 e-Cigarette/Vaping Use Never Used 07/08/24 13:48 Thrive Assessment: Date of Thrive Assessment Date Thrive assessed 05/22/24 07/08/24 13:48 Currently or been in a relationship where the following occur: No concerns reported Const General: cooperative, healthy appearing, comfortable and no acute distress Orientation/consciousness: patient oriented x3 HENMT Head: Yes normocephalic Ears: hearing grossly normal bilaterally General nose exam: Normal external nose present Mouth: Normal oral and palatal mucosa present and oropharynx normal Throat: Yes posterior oropharynx normal Eyes General: appearance normal, both eyes and all related structures Conjunctivae: conjunctivae normal Neck Neck: Yes full ROM and Yes no lymphadenopathy Resp Effort & Inspection: normal respiratory effort Auscultation: clear to auscultation bilaterally, no crackles, no rales, no rhonchi and no wheezes Cardio Rate: regular rate Rhythm: regular rhythm Skin General skin exam: no rashes or lesions noted Neuro General: patient oriented x3 Gait exam (Neuro): Normal gait present Extrem General: Yes normal to inspection, Yes full ROM and No edema Psych Affect: normal affect Attitude: cooperative Insight: Good insight present (Psych) Judgement: Good judgement present (Psych) Coding Level of Care Code Est Pt Level 4 (05449) Diagnoses Asthma J45.909 Cough R05.9 Assessment & Plan Assessment & Plan (1) Asthma: Code(s): J45.909 - Unspecified asthma, uncomplicated Category: Medical Plan: Patient does have history of asthma and states the nebulized solution typically works better for her than the inhaler prescription sent today. (2) Cough: Code(s): R05.9 - Cough, unspecified Category: Medical Plan: On exam all lung león are clear low suspicion for pneumonia at this time. Patient complaining of nonproductive dry cough for less than 1 week without fevers. Likely a result of a upper respiratory infection. Advised to use benzonatate as needed for dry cough and may use DayQuil throughout the day as well. Reviewed red flag symptoms and when to present for re-evaluation. Plan This note was constructed using voice recognition software. While every effort has been made to ensure accuracy and audit senior associate, still areas may have been included sometimes these areas may affect the content or meeting of the given symptoms. Total time spent caring for the patient today was 20 minutes. This includes time spent before the visit reviewing the chart, time spent during the visit, and time spent after the visit and documentation. Medications: New benzonatate 100 mg PO BID PRN 20 caps 0RF cough albuterol sulfate 0.63 mg (3 mL) inhalation Q6H 75 mL 0RF
[2024-07-08 13:48] VITALS: BP 134/86; PULSE 86; O2SAT 100; BMI 41.7
== END 2024-07-08 14:20 | disposition home or self-care (01) ==
DX: J45.909 Unspecified asthma, uncomplicated (principal); R05.9 Cough, unspecified

== ENCOUNTER → 2024-07-08 13:43 | Outpatient (BNVA) | payer OTHER, SELFPAY | DX: J45.909 Unspecified asthma, uncomplicated (principal); R05.9 Cough, unspecified | CPT/HCPCS: 99212 ==

== ENCOUNTER 2025-04-08 08:43 | Outpatient (AMB) | payer OTHER, SELFPAY ==
--- OUTSIDE RECORDS SUMMARY | 2011-03-07 07:53 | XMS_ITS | Continuity of Care Document ---
Author Organization [facility] Address [address] [place] [address] Phone Care Team Providers Care Lace Sewer Name Role Phone Drake Munoz MD Unavailable Unavailable Medications Medication Instructions Dosage Effective Dates (start - stop) Status Comments clomiphene citrate 50 mg Tab take 2 tablet (100MG) by ORAL route every day take day 3-7 of cycle 100 MG - Active Synthroid 25 mcg Tab Take 1 tablet by mouth daily - Active ALBUTEROL SULFATE (unknown strength) take 1 tablet by oral route 3 times every day Not Available - Active Procedures Procedure Date Annual gynecological exam Est Pt 2010 Venpnctr fngr/heel/ear stick routne Care after delivery Routine obstetric care Ultrasnd preg uterus, flwup/repeat Ultrasnd preg uterus, flwup/repeat Office/outpatient visit,est, min 2009 Ultrasnd preg uterus, flwup/repeat non-stress test Ultrasnd preg uterus, flwup/repeat Ultrasnd exam of preg uterus, compl Special reports/insurance forms 010 OB US < 14 WKS, SINGLE FETUS TRANSVAGINAL US, OBSTETRIC OB Visit W/ Nurse Venpnctr fngr/heel/ear stick routne Ultrasound, transvaginal Assay, progesterone Venpnctr fngr/heel/ear stick routne TRANSVAGINAL US, OBSTETRIC Assay, estradiol Chorionic gonadotropin test Venpnctr fngr/heel/ear stick routne Ultrasound, transvaginal Assay, estradiol Chorionic gonadotropin test Venpnctr fngr/heel/ear stick routne Ultrasound, transvaginal Venpnctr fngr/heel/ear stick routne Assay, progesterone Venpnctr fngr/heel/ear stick routne Assay, estradiol Assay, pituitary gonadotropins 10 Assay, pituitary gonadotropin 0 Assay, progesterone Venpnctr fngr/heel/ear stick routne Assay, estradiol Assay, pituitary gonadotropins 10 Assay, pituitary gonadotropin 0 Assay thyroid stimulating hormone Venpnctr fngr/heel/ear stick routne Office/outpatient visit,est, mod 2009 Office/outpatient visit,est, mod 2008 Cath/intro for uterus/oviduct x-ray Venpnctr fngr/heel/ear stick routne Office/outpatient visit,est, mod 2008 Inf Hold Fee Assay thyroid stimulating hormone Venpnctr fngr/heel/ear stick routne Assay thyroid stimulating hormone Venpnctr fngr/heel/ear stick routne Assay, estradiol Assay, pituitary gonadotropins 09 Assay, pituitary gonadotropin 9 Assay thyroid stimulating hormone Assay, true thyroxine Assay, prolactin Assay, dehydroepiandrosterone-S 009 Assay, blood testosterone Venpnctr fngr/heel/ear stick routne Office/outpatient visit,michael haddad 2008 Advance Directives Directive Yes / No Effective Date File Name No Information Encounters Encounter Description Practice Location Reason(s) For Visit Diagnoses Date Provider Providers Copied on Encounter [facility], [address], [place], [place], [address], [place] tel:[phone] [facility] No Information 1 Tammy Juan. [address], [place], [place], [address], [place]. tel:[phone] [facility], [address], [place], [address], [place] tel:[phone] [facility] annual visit (chief complaint) No Information 1 No Information [facility], [address], [place], [place], [address], [place] tel:[phone] [facility] No Information 1 Tammy Juan. [address], [place], [place], [address], [place]. tel:[phone] [facility], [address], [place], [place], [address], [place] tel:[phone] [facility] visit (chief complaint) POSTPART CARE AFTER DEL 1 No Information [facility], [address], [place], [address], [place] tel:[phone] [facility] No Information 0 No Information [facility], [address], [place], [place], [address], [place] tel:[phone] [facility] visit (chief complaint) No Information 4-201 0 Tammy Juan. [address], [place], [place], [address], [place]. tel:[phone] Referring Provider: Drake Madrigal, [address], [place], [address]. tel:[phone] [facility], [address], [place], [place], [address], [place] tel:[phone] [facility] visit (chief complaint) ABNORMAL SCREEN May-2 1-201 0 No Information [facility], [address], [place], [place], [address], [place] tel:[phone] [facility] No Information 7-201 0 Tammy Juan. [address], [place], [place], [address], [place]. tel:[phone] Referring Provider: Drake Munoz MD R, [address], [place], [address]. tel:[phone] [facility], [address], [place], [place], [address], [place] tel:[phone] [facility] ABNORMAL SCREEN May-0 6-201 0 Tammy Juan. [address], [place], [place], [address], [place]. tel:[phone] Office/outpa tient visit,est, min [facility], [address], [place], [place], [address], [place] tel:[phone] [facility] uac&s (chief complaint) DYSURIA Sep-1 7-201 0 Tammy MD Drake. [address], [place], [place], [address], [place]. tel:[phone] Referring Provider: Drake Munoz MD R, [address], [place], [address]. tel:[phone] [facility], [address], [place], [place], [address], [place] tel:[phone] [facility] visit (chief complaint) HYPOTHYROIDI SM 9201 0 Tammy Juan. [address], [place], [place], [address], [place]. tel:[phone] Referring Provider: Drake Munoz MD R, [address], [place], [address]. tel:[phone] [facility], [address], [place], [place], [address], [place] tel:[phone] [facility] visit (chief complaint) ABNORMAL SCREENABNORM AL SCREEN 0 Tammy Juan. [address], [place], [place], [address], [place]. [phone] Referring Provider: Drake Munoz MD R, [address], [place], [address]. tel:[phone] [facility], [address], [place], [place], [address], [place] tel:[phone] [facility] ABNORMAL SCREEN 5201 0 Tammy Juan. [address], [place], [address], [place]. tel:[phone] Referring Provider: Drake Munoz MD R, [address], [place], [address]. tel:[phone] [facility], [address], [place], [address], [place] tel:[phone] [facility] SCREEN- RETARDATIONA BNORMAL SCREEN 201 0 Tammy Juan. [address], [place], [address], [place]. tel:[phone] [facility], [address], [place], [address], [place] tel:[phone] [facility] No Information 0 Tammy Juan. [address], [place], [address], [place]. tel:[phone] Referring Provider: Drake Munoz MD R, [address], [place], [address]. tel:[phone] [facility], [address], [place], [address], [place] tel:[phone] [facility] No Information 0 Tammy Juan. [address], [place], [place], [address], [place]. tel:[phone] Referring Provider: Drake Munoz MD R, [address], [place], [address]. tel:[phone] [facility], [address], [place], [place], [address], [place] tel:[phone] [facility] SCREENING NOS 0 Tammy Juan. [address], [place], [address], [place]. tel:[phone] [facility], [address], [place], [address], [place] tel:[phone] [facility] 2nd visit (chief complaint) No Information 0 Tammy Juan. [address], [place], [place], [address], [place]. tel:[phone] Referring Provider: Drake Munoz MD R, [address], [place], [address]. tel:[phone] [facility], [address], [place], [address], [place] tel:[phone] [facility] No Information 0 Tammy Juan. [address], [place], [place], [address], [place]. tel:[phone] Referring Provider: Drake Madrigal, [address], [place], [address]. tel:[phone] [facility], [address], [place], [address], [place] tel:[phone] [facility] THREATENED ABORTIONHEM EARLY PREG-ANTEPAR T 0 Tammy Juan. [address], [place], [address], [place]. tel:[phone] [facility], [address], [place], [address], [place] tel:[phone] [facility] No Information Apr-2 0-201 0 Tammy Juan. [address], [place], [address], [place]. tel:[phone] Referring Provider: Drake Munoz MD R, [address], [place], [address]. tel:[phone] [facility], [address], [place], [address], [place] tel:[phone] [facility] No Information Nov- 2-201 0 Tammy Juan. [address], [place], [place], [address], [place]. [phone] Referring Provider: Drake Munoz MD R, [address], [place], [address]. tel:[phone] [facility], [address], [place], [address], [place] tel:[phone] [facility] SCREEN- RETARDATION Apr-1 2-201 0 Tammy Juan. [address], [place], [address], [place]. [phone] Referring Provider: Drake Munoz MD R, [address], [place], [address]. tel:[phone] [facility], [address], [place], [address], [place] tel:[phone] [facility] SCREENING NOS Apr-0 9-201 0 Tammy Juan. [address], [place], [address], [place]. tel:[phone] Referring Provider: Drake Munoz MD R, [address], [place], [address]. tel:[phone] [facility], [address], [place], [place], [address], [place] tel:[phone] [facility] OVARIAN CYST, UNSPEC Apr-0 1-201 0 Tammy Juan. [address], [place], [address], [place]. tel:[phone] Referring Provider: Drake Munoz MD R, [address], [place], [address]. tel:[phone] [facility], [address], [place], [address], [place] tel:[phone] [facility] Mar-3 1-201 0 Tammy Juan. [address], [place], [address], [place]. tel:[phone] [facility], [address], [place], [address], [place] tel:[phone] [facility] FERTILITY TESTING Mar-2 9-201 0 No Information Referring Provider: Drake Munoz MD R, [address], [place], [address]. tel:[phone] [facility], [address], [place], [address], [place] tel:[phone] [facility] No Information Oct-2 5-201 0 Tammy Juan. [address], [place], [address], [place]. tel:[phone] Referring Provider: Drake Munoz MD R, [address], [place], [address]. tel:[phone] [facility], [address], [place], [address], [place] tel:[phone] [facility] PELVIC PAIN Oct- 5-201 0 No Information [facility], [address], [place], [address], [place] tel:[phone] [facility] OVARIAN DYSFUNCTION NOS 5-201 0 Tammy Juan. [address], [place], [place], [address], [place]. tel:[phone] Referring Provider: Drake Madrigal, [address], [place], [address]. tel:[phone] [facility], [address], [place], [address], [place] tel:[phone] [facility] INFERTILITY UNSPECIFIED ORIGIN 0 3-201 0 Tammy Juan. [address], [place], [address], [place]. tel:[phone] Referring Provider: Drake Munoz MD R, [address], [place], [address]. tel:[phone] [facility], [address], [place], [address], [place] tel:[phone] [facility] INFERTILITY UNSPECIFIED ORIGINHYPOTH YROIDISM Fe201 0 Tammy Juan. [address], [place], [address], [place]. tel:[phone] Referring Provider: Drake Madrigal, [address], [place], [address]. tel:[phone] Office/outpa tient visit,est, mod [facility], [address], [place], [address], [place] tel:[phone] [facility] infertility (chief complaint) INFERTILITY UNSPECIFIED ORIGIN 9-201 0 No Information Office/outpa tient visit,est, mod [facility], [address], [place], [address], [place] tel:[phone] [facility] infertility (chief complaint) OLIGOSPERMIA 6200 9 No Information [facility], [address], [place], [address], [place] tel:[phone] [facility] No Information 3200 9 Tammy Juan. [address], [place], [address], [place]. tel:[phone] Referring Provider: Drake Madrigal, [address], [place], [address]. tel:[phone] [facility], [address], [place], [place], [address], [place] tel:[phone] [facility] No Information 1200 9 Tammy Juan. [address], [place], [address], [place]. tel:[phone] Referring Provider: Drake Madrigal, [address], [place], [address]. tel:[phone] Office/outpa tient visit,est, mod [facility], [address], [place], [address], [place] tel:[phone] [facility] infertility (chief complaint) FEMALE INFERTILITY NEC 9 No Information [facility], [address], [place], [address], [place] tel:[phone] [facility] No Information 9 Tammy Juan. [address], [place], [place], [address], [place]. tel:[phone] Referring Provider: Drake Madrigal, [address], [place], [address]. tel:[phone] [facility], [address], [place], [address], [place] tel:[phone] [facility] ABNORMAL THYROID FUNCTION STUDYABNORMA L THYROID FUNCTION STUDY 9 Tammy Juan. [address], [place], [place], [address], [place]. tel:[phone] Referring Provider: Drake Madrigal, [address], [place], [address]. tel:[phone] [facility], [address], [place], [address], [place] tel:[phone] [facility] No Information 200 9 Tammy Juan. [address], [place], [address], [place]. tel:[phone] Referring Provider: Drake Munoz MD R, [address], [place], [address]. tel:[phone] [facility], [address], [place], [address], tel:[phone] [facility] No Information 3-200 9 Tammy Juan. [address], [place], [address], [place]. tel:[phone] Referring Provider: Drake Munoz MD R, [address], [place], [address]. tel:[phone] Office/outpa tient visit,[facility], [address], [place], [place], [address], tel:[phone] [facility] abnormal pap smear (chief complaint)ir regular menses (chief complaint) ABNORMAL PAPIRREGULAR MENSTRUATION CERVICITIS, ACUTE Apr-3 0200 9 No Information Family History Family Member Type Diagnosis Age At Onset Paternal grandmother Problem (finding) Maternal history of diabetes mellitus spouse Problem (finding) Maternal histo ry of diabetes mellitus Father Problem (finding) hypertension Paternal grandfather Problem (finding) Myocardial infa rction Father Problem (finding) depression Mother Problem (finding) hypertension Paternal grandmother Problem (finding) Myocardial infa rction Father Problem (finding) renal stone Paternal grandfather Problem (finding) Maternal history of diabetes mellitus Payers Payer name Insurance type Covered constitution party ID Authoriza tion(s) [employer] P[employer] Blue Direct Blue BL [id number] W Social History Type Description Quantity Date Captured Comments Sex Female Smoking Status No Information Chief Complaint And Reason For Visit No Information Reason For Referral Reason For Referral No Information History Of Present Illness Encounter Date Complaint History Of Prese nt Illness No Information Functional Status Date Functional Assessmen t No Information Instructions Date Instruction Additional Infor mation No Information Assessments Type Assessment Date No Information Patient Care Teams Name Effective Dates (start - stop) Status Members No Information
--- NOTE | 2025-04-08 08:49 | AM.OFFVISNUR ---
Intake Visit Reasons: PPD Plant Allergies No Known Allergies Allergy (Verified 07/08/24 13:53) Office Meds tuberculin PPD 5 tub. unit/0.1 mL intradermal injection solution Performing Provider: Charu Negrete PA-C [facility] Administered by: Shanna Roberts RN on 04/08/25 08:49 Dose Route Admin Location Dispensed Lot Number Expiration Date [facility] Vba Programmer 0.1 mL intradermal 0.1 mL [id number] 06/05/27 87928-055-74 [employer] Total Dispensed Waste 0.1 mL 0 % Assessment & Plan Assessment & Plan Orders: Orders AMB PPD Planted Today Z11.1 - Encounter for screening for respiratory tuberculosis Coding
== END 2025-04-08 08:59 | disposition home or self-care (01) ==
LOC: HO.HMCH 08:44
DX: Z11.1 Encounter for screening for respiratory tuberculosis (principal)

== ENCOUNTER → 2025-04-08 08:43 | Outpatient (BNVA) | payer OTHER, SELFPAY | DX: Z11.1 Encounter for screening for respiratory tuberculosis (principal) | CPT/HCPCS: 86580 ==

== ENCOUNTER 2025-05-26 15:51 | Outpatient (REF) | payer OTHER, SELFPAY ==
[2025-05-27 05:52] LABS: CT PCR NOT DETECTED (Not Detect.); NG PCR NOT DETECTED (Not Detect.)
== END 2025-05-26 15:52 | disposition home or self-care (01) ==
LOC: HO.LNP 15:51
PROVIDERS: PCP Internal Medicine
DX: Z11.3 Encounter for screening for infections with a predominantly sexual mode of transmission (principal); Z23 Encounter for immunization; Z00.00 Encounter for general adult medical examination without abnormal findings; E03.9 Hypothyroidism, unspecified; E28.2 Polycystic ovarian syndrome; E66.01 Morbid (severe) obesity due to excess calories; H81.10 Benign paroxysmal vertigo, unspecified ear; G43.909 Migraine, unspecified, not intractable, without status migrainosus; J45.909 Unspecified asthma, uncomplicated; K21.9 Gastro-esophageal reflux disease without esophagitis; D22.9 Melanocytic nevi, unspecified; G47.00 Insomnia, unspecified; M79.645 Pain in left finger(s); H93.13 Tinnitus, bilateral; Z79.890 Hormone replacement therapy; Z79.899 Other long term (current) drug therapy
CPT/HCPCS: 87491; 87591; 90471; 90656; 99396

== ENCOUNTER 2025-05-26 15:51 | Outpatient (AMB) | payer OTHER, SELFPAY ==
--- OUTSIDE RECORDS SUMMARY | 2011-03-07 07:53 | XMS_ITS | Continuity of Care Document ---
Author Organization [facility] Address [address] [place] [address] Phone Care Team Providers Care Angular Developer Name Role Phone Drake Munoz MD Unavailable [...] Diagnoses Date Provider Providers Copied on Encounter [facility], [address], [place], [place], [address], [place] tel:[phone] [facility] No Information 1 Tammy Juan. [address], [place], [place], [address], [place]. tel:[phone] [facility], [address], [place], [place], [address], [place] tel:[phone] [facility] annual visit (chief complaint) No Information 1 No Information [facility], [address], [place], [place], [address], [place] tel:[phone] [facility] No Information 1 Tammy Juan. [address], [place], [place], [address], [place]. tel:[phone] [facility], [address], [place], [place], [address], [place] tel:[phone] [facility] visit (chief complaint) POSTPART CARE AFTER DEL 1 No Information [facility], [address], [place], [place], [address], [place] tel:[phone] [facility] No Information 0 No Information [facility], [address], [place], [place], [address], [place] tel:[phone] [facility] visit (chief complaint) No Information 4-201 0 Tammy Juan. [address], [place], [place], [address], [place]. tel:[phone] Referring Provider: Drake Madrigal, [address], [place], [address]. tel:[phone] [facility], [address], [place], [place], [address], [place] tel:[phone] [facility] visit (chief complaint) ABNORMAL SCREEN May-2 1-201 0 No Information [facility], [address], [place], [place], [address], [place] tel:[phone] [facility] No Information 7-201 0 Tammy Juan. [address], [place], [place], [address], [place]. tel:[phone] Referring Provider: Drake Munoz MD R, [address], [place], [address]. tel:[phone] [facility], [address], [place], [address], [place] tel:[phone] [facility] ABNORMAL SCREEN May-0 6-201 0 Tammy Juan. [address], [place], [place], [address], [place]. tel:[phone] Office/outpa tient visit,est, min [facility], [address], [place], [place], [address], [place] tel:[phone] [facility] uac&s (chief complaint) DYSURIA Sep-1 7-201 0 Tammy MD Drake. [address], [place], [place], [address], [place]. tel:[phone] Referring Provider: Drake Munoz MD R, [address], [place], [address]. tel:[phone] [facility], [address], [place], [place], [address], [place] tel:[phone] [facility] visit (chief complaint) HYPOTHYROIDI SM 9201 0 Tammy Juan. [address], [place], [place], [address], [place]. tel:[phone] Referring Provider: Drake Munoz MD R, [address], [place], [address]. tel:[phone] [facility], [address], [place], [place], [address], [place] tel:[phone] [facility] visit (chief complaint) ABNORMAL SCREENABNORM AL SCREEN 0 Tammy Juan. [address], [place], [place], [address], [place]. [phone] Referring Provider: Drake Munoz MD R, [address], [place], [address]. tel:[phone] [facility], [address], [place], [place], [address], [place] tel:[phone] [facility] ABNORMAL SCREEN 5201 0 Tammy Juan. [address], [place], [address], [place]. tel:[phone] Referring Provider: Drake Munoz MD R, [address], [place], [address]. tel:[phone] [facility], [address], [place], [address], [place] tel:[phone] [facility] SCREEN- RETARDATIONA BNORMAL SCREEN 201 0 Tammy Juan. [address], [place], [place], [address], [place]. tel:[phone] [facility], [address], [place], [address], [place] tel:[phone] [facility] No Information 0 Tammy Juan. [address], [place], [address], [place]. tel:[phone] Referring Provider: Drake Munoz MD R, [address], [place], [address]. tel:[phone] [facility], [address], [place], [address], [place] tel:[phone] [facility] No Information 0 Tammy Juan. [address], [place], [place], [address], [place]. tel:[phone] Referring Provider: Drake Munoz MD R, [address], [place], [address]. tel:[phone] [facility], [address], [place], [place], [address], [place] tel:[phone] [facility] SCREENING NOS 0 Tammy Juan. [address], [place], [place], [address], [place]. tel:[phone] [facility], [address], [place], [address], [place] tel:[phone] [facility] 2nd visit (chief complaint) No Information 0 Tammy Juan. [address], [place], [address], [place]. tel:[phone] Referring Provider: Drake Munoz MD R, [address], [place], [address]. tel:[phone] [facility], [address], [place], [address], [place] tel:[phone] [facility] No Information 0 Tammy Juan. [address], [place], [place], [address], [place]. tel:[phone] Referring Provider: Drake Madrigal, [address], [place], [address]. tel:[phone] [facility], [address], [place], [place], [address], [place] tel:[phone] [facility] THREATENED ABORTIONHEM EARLY PREG-ANTEPAR T 0 Tammy Juan. [address], [place], [place], [address], [place]. tel:[phone] [facility], [address], [place], [place], [address], [place] tel:[phone] [facility] No Information Apr-2 0-201 0 Tammy uJan. [address], [place], [place], [address], [place]. tel:[phone] Referring Provider: Drake Munoz MD R, [address], [place], [address]. tel:[phone] [facility], [address], [place], [address], [place] tel:[phone] [facility] No Information Nov- 2-201 0 Tammy Juan. [address], [place], [place], [address], [place]. [phone] Referring Provider: Drake Munoz MD R, [address], [place], [address]. tel:[phone] [facility], [address], [place], [place], [address], [place] tel:[phone] [facility] SCREEN- RETARDATION Apr-1 2-201 0 Tammy Juan. [address], [place], [place], [address], [place]. [phone] Referring Provider: Drake Munoz MD R, [address], [place], [address]. tel:[phone] [facility], [address], [place], [place], [address], [place] tel:[phone] [facility] SCREENING NOS Apr-0 9-201 0 Tammy Juan. [address], [place], [place], [address], [place]. tel:[phone] Referring Provider: Darke Munoz MD R, [address], [place], [address]. tel:[phone] [facility], [address], [place], [address], [place] tel:[phone] [facility] OVARIAN CYST, UNSPEC Apr-0 1-201 0 Tammy Juan. [address], [place], [place], [address], [place]. tel:[phone] Referring Provider: Drake Munoz MD R, [address], [place], [address]. tel:[phone] [facility], [address], [place], [place], [address], [place] tel:[phone] [facility] Mar-3 1-201 0 Tammy Juan. [address], [place], [place], [address], [place]. tel:[phone] [facility], [address], [place], [place], [address], [place] tel:[phone] [facility] FERTILITY TESTING Mar-2 9-201 0 No Information Referring Provider: Drake Munoz MD R, [address], [place], [address]. tel:[phone] [facility], [address], [place], [address], [place] tel:[phone] [facility] No Information Oct-2 5-201 0 Tammy Juan. [address], [place], [address], [place]. tel:[phone] Referring Provider: Drake Munoz MD R, [address], [place], [address]. tel:[phone] [facility], [address], [place], [place], [address], [place] tel:[phone] [facility] PELVIC PAIN Oct- 5-201 0 No Information [facility], [address], [place], [address], [place] tel:[phone] [facility] OVARIAN DYSFUNCTION NOS 5-201 0 Tammy Juan. [address], [place], [place], [address], [place]. tel:[phone] Referring Provider: Drake Madrigal, [address], [place], [address]. tel:[phone] [facility], [address], [place], [place], [address], [place] tel:[phone] [facility] INFERTILITY UNSPECIFIED ORIGIN 0 3-201 0 Tammy Juan. [address], [place], [address], [place]. tel:[phone] Referring Provider: Drake Munoz MD R, [address], [place], [address]. tel:[phone] [facility], [address], [place], [address], [place] tel:[phone] [facility] INFERTILITY UNSPECIFIED ORIGINHYPOTH YROIDISM Fe201 0 Tammy Juan. [address], [place], [address], [place]. tel:[phone] Referring Provider: Drake Madrigal, [address], [place], [address]. tel:[phone] Office/outpa tient visit,est, mod [facility], [address], [place], [place], [address], [place] tel:[phone] [facility] infertility (chief complaint) INFERTILITY UNSPECIFIED ORIGIN 9-201 0 No Information Office/outpa tient visit,est, mod [facility], [address], [place], [address], [place] tel:[phone] [facility] infertility (chief complaint) OLIGOSPERMIA 6200 9 No Information [facility], [address], [place], [place], [address], [place] tel:[phone] [facility] No Information 3200 9 Tammy Juan. [address], [place], [address], [place]. tel:[phone] Referring Provider: Drake Madrigal, [address], [place], [address]. tel:[phone] [facility], [address], [place], [address], [place] tel:[phone] [facility] No Information 1200 9 Tammy Juan. [address], [place], [place], [address], [place]. tel:[phone] Referring Provider: Drake Madrigal, [address], [place], [address]. tel:[phone] Office/outpa tient visit,est, mod [facility], [address], [place], [address], [place] tel:[phone] [facility] infertility (chief complaint) FEMALE INFERTILITY NEC 9 No Information [facility], [address], [place], [address], [place] tel:[phone] [facility] No Information 9 Tammy Juan. [address], [place], [place], [address], [place]. tel:[phone] Referring Provider: Drake Madrigal, [address], [place], [address]. tel:[phone] [facility], [address], [place], [address], [place] tel:[phone] [facility] ABNORMAL THYROID FUNCTION STUDYABNORMA L THYROID FUNCTION STUDY 9 Tammy Juan. [address], [place], [place], [address], [place]. tel:[phone] Referring Provider: Drake Madrigal, [address], [place], [address]. tel:[phone] [facility], [address], [place], [address], [place] tel:[phone] [facility] No Information 200 9 Tammy Juan. [address], [place], [address], [place]. tel:[phone] Referring Provider: Drake Munoz MD R, [address], [place], [address]. tel:[phone] [facility], [address], [place], [place], [address], tel:[phone] [facility] No Information 3-200 9 Tammy Juan. [address], [place], [place], [address], [place]. tel:[phone] Referring Provider: Drake Munoz MD R, [address], [place], [address]. tel:[phone] Office/outpa tient visit,[facility], [address], [place], [place], [address], tel:[phone] [facility] abnormal pap smear (chief complaint)ir [...] mellitus Payers Payer name Insurance type Covered republican ID Authoriza tion(s) [employer] P[employer] Blue Direct Blue BL [id number] W Social History Type Description Quantity Date [...]
--- NOTE | 2025-05-26 16:23 | MHC.PC.OV ---
Vital Signs 05/26/25 16:24 Height 5 ft 4 in Weight 259 lb 6 oz BMI 44.5 BP 128/76 Blood Pressure Location Lt brachial Position Sitting Pulse 80 Pulse Source Pulse Oximeter Temp 97.5 F Temp Source Temporal Artery Scan Pulse Oximetry (%) 100 Oxygen Delivery Method Room Air Intake Visit Reasons: annual exam PHQ-9 needed. Intake Note: Patient is here today for a physical. Gardening Instructor Required: No Edi Developer: Not Required per policy Accompanied by: Self / Same As Patient Allergies No Known Allergies Allergy (Verified 05/26/25 16:31) Medication List - Last Reconciled 05/26/25 by Charu Negrete PA-C albuterol sulfate 0.63 mg (3 mL) inhalation Q6H cholecalciferol (vitamin D3) 50 mcg PO DAILY famotidine (Acid Manager Dairy (famotidine)) 10 mg PO BEDTIME levothyroxine 112 mcg PO DAILY 90 days loratadine (Allergy Relief (loratadine)) 10 mg PO DAILY 90 days progesterone micronized (Prometrium) 200 mg PO BEDTIME 10 days Ventolin HFA 90 mcg/actuation (albuterol sulfate) 2 puffs PO Q6H PRN NS Tobacco use date assessed: 05/26/25 Dental Screening Dental Screen Date: 05/26/25 Did you have a dental visit in the last 12 months?: Yes Did you have a dental problem in the last 6 months where you did not have access to dental care?: No Was dental information given to patient?: Patient has dentist HPI annual exam PHQ-9 needed. HPI Details 39-year-old female with past medical history of hypothyroidism, morbid obesity, chronic GERD, and asthma last seen 07/2024 coming in for annual exam. Presenting for a wellness visit and management of chronic conditions. The patient reported being sick for an entire month but is feeling much better now. The patient reports ringing in both ears for a few months, with no wax or significant fluid found during examination. The patient experiences pain in the thumb joint, likely due to tendon overuse, and is advised to rest the hand. The patient has difficulty staying asleep, waking between 1:30 and 3:00 AM, and is considering magnesium supplementation. mammogram: through [facility] pap smear: [facility] dev ops engineer 08/2025 vaccines: UTD and flu given today [facility] Medical History Asthma PCOS (polycystic ovarian syndrome) Viral infection Chronic GERD Morbid obesity Hypothyroid Surgical History History of partial hysterectomy History of tubal ligation Family History Father Hypertension Pure hypercholesterolemia Mother Asthma Hypertension Maternal Grandfather Stroke Paternal Grandfather Diabetes Maternal Uncle Colon cancer Social History Household Members: Children Housing: House Alcohol intake: current Alcohol intake frequency: holidays/special occasions only Alcohol type: wine Patient Tobacco Use Status: Never used Tobacco e-Cigarette/Vaping Use: Never Used Second Hand Smoke Exposure: Yes service: No Current occupational status: employed Current occupation: customer services Current occupational exposures/hazards: No Sexual orientation: Straight/Heterosexual Gender identity: Female Cognitive needs: No Hearing needs: No Vision needs: No Female Reproductive History Menstrual Age of Menarche: 7 Questionnaire PHQ-9 Over the last 2 weeks, how often have you been bothered by any of the following problems? 1. Little interest or pleasure in doing things: not at all 2. Feeling down, depressed, or hopeless: not at all 3. Trouble falling or staying asleep, or sleeping too much: not at all 4. Feeling tired or having little energy: not at all 5. Poor appetite or overeating: not at all 6. Feeling bad about yourself - or that you are a failure or have let yourself or your family down: not at all 7. Trouble concentrating on things, such as reading the newspaper or watching television: not at all 8. Moving or speaking so slowly that other people could have noticed. Or the opposite - being so fidgety or restless that you have been moving around a lot more than usual: not at all 9. Thoughts that you would be better off or of hurting yourself in some way: not at all Total score: 0 Depression Screening Interpretation: Negative Depression Screening Done: Yes Source: Developed by Drs. Tutu Pratt, Deyanira Smith, Daryl Waller and colleagues, with an educational elizabeth from [employer]. Thrive Questionnaire Date Thrive assessed: 04/08/25 I am a: Patient What is your living situation today?: I choose not to answer this question Within the past 12 months, did the food you bought not last and you didn't have the money to get more?: I choose not to answer this question Within the past 12 months, did you worry whether your food would run out before you got money to buy more?: I choose not to answer this question Do you have trouble paying for medicines?: I choose not to answer this question Do you have trouble getting transportation to medical appointments?: No Do you have trouble paying your heating and electricity bill?: I choose not to answer this question Do you have trouble taking care of your child, family member or friend?: I choose not to answer this question Do you have trouble with day-to-day activities such as bathing, preparing meals, shopping, managing finances, etc.?: I choose not to answer this question Are you currently unemployed and looking for a job?: No Are you interested in more education?: No Please select the resources that you would like help with: None Currently or been in a relationship where the following occur: No concerns reported THRIVE Score: 0 AUDIT C Alcohol Use Questionnaire (AUDIT-C) 1. How often do you have a drink containing alcohol?: Never Total Score: 0 ALINE-7 AMB Questionnaire ALINE-7 Date ALINE - 7 assessed: 05/26/25 Feeling nervous, anxious, or on edge: 0 = Not at all Not being able to stop or control worryin = Not at all Worrying too much about different things: 0 = Not at all Trouble relaxin = Not at all Being so restless that it is hard to sit still: 0 = Not at all Becoming easily annoyed or irritable: 0 = Not at all Feeling afraid as if something awful might happen: 0 = Not at all Total ALINE-7 score (0-4 normal; 5-9 mild; 10-14 moderate; 15-21 severe): 0 Source: Developed by Drs. Tutu Pratt, Deyanira Smith, Daryl Waller and colleagues, with an educational elizabeth from [employer]. Review of Systems Const Denies body aches, Denies fatigue, Denies fever(s), Denies frequent falls, Reports headache(s) (occasional ) and Denies weakness Eyes Reports no additional complaints and Denies change in vision ENT Denies dysphagia, Denies dizziness, Denies facial pain, Reports headache(s) (occasional ), Denies nasal congestion, Denies odynophagia and Reports tinnitus Card Denies chest pain, Denies syncope, Denies irregular heart rhythm, Denies leg edema, Denies lightheadedness and Denies dyspnea Resp Denies cough and Denies dyspnea GI Denies abdominal pain, Reports constipation, Denies dysphagia, Denies dyspepsia, Denies diarrhea, Denies nausea, Denies odynophagia and Denies vomiting Denies urinary frequency, Denies dysuria, Denies urinary hesitancy and Denies urinary urgency Musc Denies back pain and Denies myalgias Skin/Breast Reports system reviewed and no additional complaints, except as documented Neuro Denies dizziness, Denies syncope, Denies frequent falls, Reports headache(s) (occasional ) and Denies weakness Psych Reports no additional complaints Endo Denies fatigue Physical exam (Primary Care) Vital Signs: Last Vital Signs Temp 97.5 F 05/26/25 16:24 Pulse 80 05/26/25 16:24 BP 128/76 05/26/25 16:24 Pulse Ox 100 05/26/25 16:24 Oxygen Delivery Method Room Air 05/26/25 16:24 BMI result Body Mass Index 44.5 Tobacco/Smoking Status: Tobacco use Status Tobacco use date assessed 05/26/25 05/26/25 16:25 Patient Tobacco Use Status Never used Tobacco 05/26/25 16:25 e-Cigarette/Vaping Use Never Used 05/26/25 16:25 PHQ-9: PHQ-9 Score PHQ-9: Total score 0 05/26/25 16:31 Depression Screening Interpretation: Negative Thrive Assessment: Date of Thrive Assessment Date Thrive assessed 04/08/25 05/26/25 16:25 Currently or been in a relationship where the following occur: No concerns reported Const General: cooperative, healthy appearing, comfortable and no acute distress Orientation/consciousness: patient oriented x3 HENMT Head: Yes normocephalic Ears: hearing grossly normal bilaterally, external ears normal, TM's normal bilaterally and EAC's normal General nose exam: Normal external nose present Face and sinus: Yes normal facial exam and Yes sinuses nontender Mouth: Normal oral and palatal mucosa present and tongue normal Throat: Yes posterior oropharynx normal Eyes General: appearance normal, both eyes and all related structures Conjunctivae: conjunctivae normal Pupils: Equal, round and reactive pupils present EOM: EOMs intact bilaterally and No Nystagmus present Neck Neck: Yes normal visual inspection, Yes full ROM and Yes no lymphadenopathy Chest Chest palpation & inspection: normal inspection of the chest Resp Effort & Inspection: normal respiratory effort Auscultation: clear to auscultation bilaterally, no crackles, no rales, no rhonchi, no wheezes and breath sounds present Cardio Rate: regular rate Rhythm: regular rhythm Peripheral pulses: radial pulses present and dorsalis pedis present GI Inspection: Yes normal to inspection and No Abdominal wall edema Palpation (GI): Soft to palpation, not firm and nontender Auscultation: normal bowel sounds Rectal Exam - Female: deferred General: Yes no CVA tenderness Back/Spine/Pelvis Back: no CVA tenderness Skin General skin exam: no rashes or lesions noted Neuro General: patient oriented x3 Cranial nerves: Yes Equal, round and reactive pupils present, Yes Midline tongue present, Yes Ability to bilaterally elevate shoulders present and No Nystagmus present Gait exam (Neuro): Normal gait present Extrem Other: No tenderness to palpation over left thumb. Intact strength, sensation and pulses in bilateral upper extremities General: Yes normal to inspection, Yes full ROM, No no pedal edema and No edema Psych Speech and movement: Normal speech and movement present Affect: normal affect Insight: Good insight present (Psych) Judgement: Good judgement present (Psych) Office Procedures Flu Questionnaire Does the patient have a severe egg allergy?: No Does the patient have severe life threatening allergies?: No Does the patient have a fever or illness today?: No Has the patient ever had Guillain-Columbus Syndrome?: No Has the patient ever had any past reaction to a flu shot?: No Immunizations Fluarix [id number] (PF) 45 mcg (15 mcg x 3)/0.5 mL IM syringe Performing Provider: Charu Negrete PA-C [facility] [place] [facility] Administered by: Marnie Sauer RN on 05/26/25 16:49 Dose Route Admin Location Dispensed Lot Number Expiration Date [facility] Manager Regional 0.5 mL IM Right Deltoid 0.5 mL [id number] 02/02/26 29988-019-16 [employer] VIS Given Date VIS Provided VIS Publication Date 05/26/25 Single Vaccine 24 Eligibility Eligibility Date Funding Source Not [facility] Eligible 05/26/25 Private Coding Level of Care Code Est Pt Prev Care 40-64y([id number]) Diagnoses Annual physical exam Z00.00 Hypothyroid E03.9 PCOS (polycystic ovarian syndrome) E28.2 Morbid obesity E66.01 BPPV (benign paroxysmal positional vertigo) H81.10 Migraines G43.909 Asthma J45.909 Chronic GERD K21.9 Atypical nevi D22.9 Insomnia G47.00 Pain of left thumb M79.645 Tinnitus H93.19 Assessment & Plan Assessment & Plan (1) Annual physical exam: Code(s): Z00.00 - Encounter for general adult medical examination without abnormal findings Category: Medical Plan: Patient is up-to-date on all recommended routine screenings and vaccinations for her age. Pap smear completed last . We did order for updated blood work and plan to follow up in 3 months or sooner as needed. (2) Hypothyroid: Code(s): E03.9 - Hypothyroidism, unspecified Category: Medical Plan: Continue on levothyroxine and we will order for updated blood work. (3) PCOS (polycystic ovarian syndrome): Code(s): E28.2 - Polycystic ovarian syndrome Category: Medical Plan: Continue to follow with [facility] gynecology. (4) Morbid obesity: Code(s): E66.01 - Morbid (severe) obesity due to excess calories Category: Medical Plan: Healthy diet and regular exercise is encouraged. (5) BPPV (benign paroxysmal positional vertigo): Code(s): H81.10 - Benign paroxysmal vertigo, unspecified ear Category: Medical Plan: Last episode was in February and has not had recurrance. (6) Migraines: Code(s): G43.909 - Migraine, unspecified, not intractable, without status migrainosus Category: Medical Plan: Patient will have occasional migraines patient has not had one in quite some time. (7) Asthma: Code(s): J45.909 - Unspecified asthma, uncomplicated Category: Medical Plan: Asthma currently controlled on present medications. Continue on albuterol as needed. Avoid triggers such as allergies. (8) Chronic GERD: Code(s): K21.9 - Gastro-esophageal reflux disease without esophagitis Category: Medical Plan: Avoid trigger foods such as citrus, tomato products, soda, caffeine, spicy foods and other foods that may be irritating to your stomach. Avoid laying flat 3-4 hours after eating and elevate the head of the bed 30 degrees to prevent acid from moving into the esophagus. Current symptoms have been well controlled without pantoprazole advised patient to use famotidine as needed. (9) Atypical nevi: Code(s): D22.9 - Melanocytic nevi, unspecified Category: Medical Plan: Referral was placed to dermatology today. (10) Insomnia: Code(s): G47.00 - Insomnia, unspecified Category: Medical Plan: The patient has difficulty staying asleep, waking between 1:30 and 3:00 AM. Magnesium supplementation was suggested as a potential aid for sleep improvement. Discussed possible medication such as trazodone or hydroxyzine and she agrees to reach out if she would like to try these medications. (11) Pain of left thumb: Code(s): M79.645 - Pain in left finger(s) Category: Medical Plan: The patient experiences pain in the thumb joint, likely due to tendon overuse. Rest and potential use of a brace were advised to alleviate symptoms. (12) Tinnitus: Code(s): H93.19 - Tinnitus, unspecified ear Category: Medical Plan: The patient reports bilateral tinnitus for several months. Examination revealed no wax and minimal fluid in the ears. The use of Flonase was recommended to help with any potential fluid drainage. Plan This note was constructed using voice recognition software. While every effort has been made to ensure accuracy and grease remover, still areas may have been included sometimes these areas may affect the content or meeting of the given symptoms. Total time spent caring for the patient today was 30 minutes. This includes time spent before the visit reviewing the chart, time spent during the visit, and time spent after the visit and documentation. Patient was informed and verbally consented to the use of an ambient scribe for clinic note documentation during this visit. Orders: Orders Free T4 (Free Thyroxine) Today E03.9 - Hypothyroidism, unspecified, Z13.29 - Encounter for screening for other suspected endocrine disorder Vitamin D 25-OH Total Today R79.89 - Other specified abnormal findings of blood chemistry, Z13.21 - Encounter for screening for nutritional disorder Hepatitis B,C Profile Today R79.89 - Other specified abnormal findings of blood chemistry, Z11.3 - Encounter for screening for infections with a predominantly sexual mode of transmission Complete Blood Count Auto Diff Today E66.01 - Morbid (severe) obesity due to excess calories, Z13.0 - Encounter for screening for diseases of the blood and blood-forming organs and certain disorders involving the immune mechanism Lipid Panel Today Z13.220 - Encounter for screening for lipoid disorders Hemoglobin A1c Today Z13.1 - Encounter for screening for diabetes mellitus Influenza [id number] Immunization Today Z23 - Encounter for immunization TSH reflex Free T4 Today E03.9 - Hypothyroidism, unspecified Vitamin B12 and Folate Today Z13.21 - Encounter for screening for nutritional disorder CT NG by PCR Vag/Cerv Today Z11.3 - Encounter for screening for infections with a predominantly sexual mode of transmission HIV Ab/Ag Today Z11.3 - Encounter for screening for infections with a predominantly sexual mode of transmission Comprehensive Met. Panel Today E66.01 - Morbid (severe) obesity due to excess calories, Z00.00 - Encounter for general adult medical examination without abnormal findings Referrals Dermatology Referral D22.9 - Melanocytic nevi, unspecified
[2025-05-26 16:24] VITALS: BP 128/76; PULSE 80; TEMP 36.4; O2SAT 100; BMI 44.5
== END 2025-05-26 17:04 | disposition home or self-care (01) ==
LOC: HO.HMCH 15:52
PROVIDERS: PCP Internal Medicine
DX: Z00.00 Encounter for general adult medical examination without abnormal findings (principal); E03.9 Hypothyroidism, unspecified; E66.01 Morbid (severe) obesity due to excess calories; Z68.41 Body mass index [BMI] 40.0-44.9, adult; H81.13 Benign paroxysmal vertigo, bilateral; G43.909 Migraine, unspecified, not intractable, without status migrainosus; J45.909 Unspecified asthma, uncomplicated; K21.9 Gastro-esophageal reflux disease without esophagitis; D22.9 Melanocytic nevi, unspecified; G47.00 Insomnia, unspecified; M79.645 Pain in left finger(s); Z23 Encounter for immunization

== ENCOUNTER 2025-07-27 14:34 | Outpatient (REF) | payer OTHER, SELFPAY ==
[2025-07-27 19:22] LABS: Resp Syncy Virus RNA Qual PCR NEGATIVE (Negative); SARS COV2 PCR INHOUSE NEGATIVE (Negative)
== END 2025-07-27 14:35 | disposition home or self-care (01) ==
LOC: HO.LNP 14:34
DX: K21.9 Gastro-esophageal reflux disease without esophagitis (principal); R09.89 Other specified symptoms and signs involving the circulatory and respiratory systems; G43.909 Migraine, unspecified, not intractable, without status migrainosus; J06.9 Acute upper respiratory infection, unspecified; H92.09 Otalgia, unspecified ear
CPT/HCPCS: 87637; 99212

== ENCOUNTER 2025-07-27 14:34 | Outpatient (AMB) | payer OTHER, SELFPAY ==
[2025-07-27 14:58] VITALS: BP 130/80; PULSE 83; RESP 18; TEMP 37.1; O2SAT 99; BMI 44.5
--- NOTE | 2025-07-27 14:58 | A.OFFPC_ITS ---
Vital Signs 07/27/25 14:58 Height 5 ft 4 in Weight 259 lb 2 oz BMI 44.5 BP 130/80 Blood Pressure Location Lt brachial Position Sitting Respiration 18 Pulse 83 Pulse Source Pulse Oximeter Temp 98.8 F Temp Source Tympanic Pulse Oximetry (%) 99 Oxygen Delivery Method Room Air Intake Visit Reasons: sinus congestion/ ear pain Intake Note: Patient states they started with left ear pain, congestion, and OHARA x 4 days. No fever Allergies No Known Allergies Allergy (Verified 07/27/25 15:10) Medication List - Last Reconciled 07/27/25 by Charu Negrete PA-C albuterol sulfate 0.63 mg (3 mL) inhalation Q6H cholecalciferol (vitamin D3) 50 mcg PO DAILY famotidine (Acid Alley Tender (famotidine)) 10 mg PO BEDTIME levothyroxine 112 mcg PO DAILY 90 days loratadine (Allergy Relief (loratadine)) 10 mg PO DAILY 90 days Ventolin HFA 90 mcg/actuation (albuterol sulfate) 2 puffs PO Q6H PRN NS Tobacco use date assessed: 05/26/25 Dental Screening Dental Screen Date: 05/26/25 HPI sinus congestion/ ear pain HPI Details 40-year-old female with past medical his tory of hypothyroidism, morbid obesity, chronic GERD, and asthma last seen 05/2025 coming in for acute problem. Presenting with ear symptoms and a migraine. She reports a migraine headache that has persisted for the past week, which began before her other symptoms. Her ear pain began on Sunday night, and she describes a sensation of hearing as if she is in a tunnel. The pain was intermittent on Sunday and became consistent on Sunday afternoon. Associated symptoms include a subjective fever on Sunday, body aches, myalgias, and a dry, non-productive cough that causes a burning sensation and chest tightness. The patient's entire household is sick; her mother has pneumonia, her son had croup, and her other child had a viral illness. She has a history of asthma and used her albuterol inhaler last night and this morning for chest tightness. [facility] Medical History Asthma PCOS (polycystic ovarian syndrome) Viral infection Chronic GERD Morbid obesity Hypothyroid Surgical History History of partial hysterectomy History of tubal ligation Family History Father Hypertension Pure hypercholesterolemia Mother Asthma Hypertension Maternal Grandfather Stroke Paternal Grandfather Diabetes Maternal Uncle Colon cancer Social History Household Members: Children Housing: House Alcohol intake: current Alcohol intake frequency: holidays/special occasions on ly Alcohol type: wine Patient Tobacco Use Status: Never used Tobacco e-Cigarette/Vaping Use: Never Used Second Hand Smoke Exposure: Yes service: No Current occupational status: employed Current occupation: customer services Current occupational exposures/hazards: No Sexual orientation: Straight/Heterosexual Gender identity: Female Cognitive needs: No Hearing needs: No Vision needs: No Female Reproductive History Menstrual Age of Menarche: 7 Questionnaire Thrive Questionnaire Date Thrive assessed: 05/26/25 I am a: Patient What is your living situation today?: I choose not to answer this question Within the past 12 months, did the food you bought not last and you didn't have the money to get more?: I choose not to answer this question Within the past 12 months, did you worry whether your food would run out before you got money to buy more?: I choose not to answer this question Do you have trouble paying for medicines?: I choose not to answer this question Do you have trouble getting transportation to medical appointments?: No Do you have trouble paying your heating and electricity bill?: I choose not to answer this question Do you have trouble taking care of your child, family member or friend?: I choose not to answer this question Do you have trouble with day-to-day activities such as bathing, preparing meals, shopping, managing finances, etc.?: I choose not to answer this question Are you currently unemployed and looking for a job?: No Are you interested in more education?: No Currently or been in a relationship where the following occur: No concerns reported THRIVE Score: 0 ALINE-7 AMB Questionnaire ALINE-7 Date ALINE - 7 assessed: 05/26/25 Source: Developed by Drs. Tutu Pratt, Deyanira Smith, Daryl Waller and colleagues, with an educational elizabeth from [employer]. Review of Systems Const Reports body aches, Reports chills, Reports fever(s), Reports headache(s) and Denies poor appetite Eyes Reports no additional complaints ENT Denies dysphagia, Denies dizziness, Reports otalgia, Denies facial pain, Reports headache(s), Reports nasal congestion, Denies odynophagia and Denies sore throat Card Denies chest pain, Denies edema, Denies lightheadedness and Denies dyspnea Resp Reports cough, Denies excessive phlegm production and Denies dyspnea GI Denies abdominal pain, Denies constipation, Denies dysphagia, Denies diarrhea, Denies nausea, Denies odynophagia and Denies vomiting Reports no additional complaints Musc Reports no additional complaints and Denies abnormal gait Skin/Breast Reports system reviewed and no additional complaints, except as documented Neuro Denies abnormal gait, Denies dizziness and Reports headache(s) Psych Reports no additional complaints Physical exam (Primary Care) Vital Signs: Last Vital Signs Temp 98.8 F 07/27/25 14:58 Pulse 83 07/27/25 14:58 Resp 18 07/27/25 14:58 BP 130/80 07/27/25 14:58 Pulse Ox 99 07/27/25 14:58 Oxygen Delivery Method Room Air 07/27/25 14:58 BMI result Body Mass Index 44.5 Tobacco/Smoking Status: Tobacco use Status Tobacco use date assessed 05/26/25 07/27/25 15:01 Patient Tobacco Use Status Never used Tobacco 07/27/25 15:01 e-Cigarette/Vaping Use Never Used 07/27/25 15:01 Thrive Assessment: Date of Thrive Assessment Date Thrive assessed 05/26/25 07/27/25 15:01 Currently or been in a relationship where the following occur: No concerns reported Const General: cooperative, healthy appearing, comfortable and no acute distress Orientation/consciousness: patient oriented x3 HENMT Head: Yes normocephalic Ears: hearing grossly normal bilaterally, TM's normal bilaterally and EAC's normal General nose exam: Normal external nose present Mouth: oropharynx normal Throat: Yes posterior oropharynx normal, Yes tonsils normal and Yes uvula midline Eyes General: appearance normal, both eyes and all related structures Conjunctivae: conjunctivae normal Neck Neck: Yes full ROM and Yes no lymphadenopathy Resp Effort & Inspection: normal respiratory effort Auscultation: clear to auscultation bilaterally, no crackles, no rales, no rhonchi and no wheezes Cardio Rate: regular rate Rhythm: regular rhythm Skin General skin exam: no rashes or lesions noted Neuro General: patient oriented x3 Gait exam (Neuro): Normal gait present Extrem General: Yes normal to inspection, Yes full ROM and No edema Psych Affect: normal affect Attitude: cooperative Insight: Good insight present (Psych) Judgement: Good judgement present (Psych) Coding Level of Care Code Est Pt Level 3 (43079) Diagnoses Viral URI J06.9 Ear pain H92.09 Assessment & Plan Assessment & Plan (1) Viral URI: Code(s): J06.9 - Acute upper respiratory infection, unspecified Category: Medical Plan: The patient's presentation with headache, fever, cough, and body aches, along with significant sick contacts, is suspicious for a viral illness, possibly COVID-19 or influenza. A nasal swab for COVID-19, influenza, and RSV was collected, with results expected tomorrow. Symptomatic management was recommended with Tylenol for fever, rest, and fluids. A medication will be prescribed for the cough. Sudafed was also suggested for head congestion, to be used for no more than three days. If tests are positive for influenza or COVID- 19, antiviral therapy will be initiated. lungs are clear on exam and low suspicion for pneumonia today. Reviewed red flag symptoms and when to present for re-evaluation. (2) Ear pain: Code(s): H92.09 - Otalgia, unspecified ear Category: Medical Plan: The patient's ear pain is likely referred from the temporomandibular joint, possibly due to clenching, as the physical exam of the ear was unremarkable and she had tenderness over the TMJ area. Ibuprofen was recommended for pain management. Plan This note was constructed using voice recognition software. While every effort has been made to ensure accuracy and special education supervisor, still areas may have been included sometimes these areas may affect the content or meeting of the given symptoms. Total time spent caring for the patient today was 20 minutes. This includes time spent before the visit reviewing the chart, time spent during the visit, and time spent after the visit and documentation. Patient was informed and verbally consented to the use of an ambient scribe for clinic note documentation during this visit. Orders: Orders SARS-CoV2/FLU/RSV Today R09.89 - Other specified symptoms and signs involving the circulatory and respiratory systems Medications: New benzonatate 200 mg PO BID PRN 30 caps 0RF cough
== END 2025-07-27 15:23 | disposition home or self-care (01) ==
LOC: HO.HMCH 14:35
DX: J06.9 Acute upper respiratory infection, unspecified (principal); H92.09 Otalgia, unspecified ear